=== PATIENT | female | born 1990 | race Caucasian/White ===

== ENCOUNTER 2016-03-29 16:32 | Emergency (ER) | payer OTHER ==
[~2016-03-29] VITALS: Wt 116.4 kg
[~2016-03-29 16:32] MED LIST: FLUT9.9S NASAL; NITR-58 PO; ONDA4TAB35 PO; SODI30SP2 NS
[2016-03-29 16:56] VITALS: Wt 116.4 kg
--- NOTE | 2016-03-29 18:30 | ERD ---
ER Documentation Chief Complaint Date/Time DATE: 03/29/16 TIME: 18:21 Chief Complaint bib ems c/o anxiety, lorazepam 1mg today, not helping. HPI This patient is a 25-year-old female with a history of anxiety and panic attacks presenting to the emergency department for palpitations and feeling like "her throat is closing". The patient states her symptoms have been occurring intermittently since 4 days ago. This is her third visit to the emergency department this week and she has had a head CT scan, chest CT scan and multiple laboratory tests ordered, of which were all unremarkable. The patient was prescribed Paxil to be taken daily and Ativan to be taken as needed for anxiety symptoms. She states she has had mild relief over the past 3 days with these medications. The patient denies any chest pain, fevers, chills, nausea, vomiting, diarrhea or other symptoms at this time. There are no other alleviating or exacerbating factors at this time. ROS All systems reviewed and are negative except as per history of present illness. Medications Home Meds Active Scripts Sodium Chloride (Saline Nasal [place]) 30 Ml [place], 2 SPRAYS NS Q2H Y for NASAL CONGESTION, #1 BOTTLE Prov:ROLAN JUÁREZ. BURR PICKER 11/24/15 Fluticasone Propionate (Flonase Allergy Relief) 9.9 Ml [place].susp, 1 SPRAY NASAL DAILY, #1 BOTTLE TO EACH NOSTRIL Prov:ROLAN JUÁREZ NP 11/24/15 Ondansetron Hcl* (Zofran* ODT) 4 mg -ODT Tab.disper, 4 MG PO Q8 Y for NAUSEA AND /OR VOMITING, #30 TAB Prov:HECTOR SALTER NP 01/06/15 Nitrofurantoin Monohyd Macrocr* (Macrobid*) 100 Mg Capsr, 100 MG PO BID for 7 Days, CAP Prov:HECTOR SALTER NP 01/06/15 Allergies Allergies: Coded Allergies: Penicillins (Verified Allergy, Mild, RASH, 01/10/15) codeine (Verified Allergy, Mild, RASH, 01/10/15) Uncoded Allergies: GI COCKTAIL (Allergy, Unknown, hives, 01/05/15) PMhx/Soc History of Surgery: Yes (cholecystectomy) Anesthesia Reaction: No Hx Neurological Disorder: No Hx Respiratory Disorders: No Hx Cardiac Disorders: Yes (HTN 10 YR AGO) Hx Psychiatric Problems: No Hx Miscellaneous Medical Probl: Yes (depression) Hx Alcohol Use: No Hx Substance Use: No Hx Tobacco Use: No Smoking Status: Never smoker FmHx Noncontributory for chief complaint Physical Exam Vitals Vital Signs Date Time Temp Pulse Resp B/P Pulse Ox O2 Delivery O2 Flow Rate FiO2 03/29/16 16:56 98.0 101 20 137/87 98 Physical Exam INITIAL VITAL SIGNS: Reviewed by me. The patient is tearful. GENERAL: The patient is well developed and appropriate for usual state of health in no apparent distress HEENT: Pupils equal, round, and reactive to light. EOMI. There is no scleral icterus. NECK: C-spine is soft and supple, there is no meningismus. There is no cervical lymphadenopathy. LUNGS: Clear to auscultation bilaterally. There are no rales, wheezes or rhonchi. HEART: Regular rate and rhythm, no murmurs, clicks, rubs or gallops. ABDOMEN: Obese, soft, non-tender, non-distended. There are bowel sounds in all four quadrants. No rebound or guarding. EXTREMITIES: There is no peripheral cyanosis or edema. No focal swelling or erythema. NEUROLOGICAL: The patient moves all four extremities with 5/5 strength. Cranial nerves II - XII are intact. Normal gait. Alert and oriented SKIN: There is no apparent rash or petechiae. HEME/LYMPHATIC: There is no evidence of excessive bruising or lymphedema. PSYCHIATRIC: Tearful affect. The patient denies any suicidal ideation or homicidal ideation. Procedures/MDM EKG: Interpreted by ED physician. Rate/Rhythm: Normal sinus rhythm, rate is 94 bpm. QRS, ST, T-waves: No changes consistent w/ acute ischemia Impression: No evidence of ischemia or arrhythmia MDM: 25-year-old female presenting to the emergency department with acute anxiety symptoms. On physical examination the patient has a tearful affect but she adamantly denies any suicidal or homicidal ideation. The rest of the physical examination is unremarkable. EKG interpretation shows no evidence of acute ischemia. Patient is not able to identify any triggers in her life currently that are causing her anxiety symptoms. The patient was advised to continue taking her prescribed medications as directed and she was given resources to follow-up with community mental health clinics. The patient is under direct care of her primary care physician who will be referring her out to specialists as needed. After some time speaking with the patient in the department, she states she is feeling improved and she is currently stable for discharge. I feel that the patient's symptoms are attributed to acute anxiety and she agrees with the plan to be treated as an outpatient. She states she will return to the emergency department immediately should her symptoms continue. I discussed this case with Dr. Eliezer Holden, attending ED physician who agrees with History, Examination, ED course, and disposition. Departure Diagnosis: Primary Impression: Anxiety attack Condition: Stable Patient Instructions: Panic Attack Referrals: JOHN OLIVERA (PCP) RACHELL BRICEÑO [facility] YOU HAVE RECEIVED A MEDICAL SCREENING EXAM AND THE RESULTS INDICATE THAT YOU DO NOT HAVE A CONDITION THAT REQUIRES URGENT TREATMENT IN THE EMERGENCY DEPARTMENT. FURTHER EVALUATION AND TREATMENT OF YOUR CONDITION CAN WAIT UNTIL YOU ARE SEEN IN YOUR DOCTORS OFFICE WITHIN THE NEXT 1-2 DAYS. IT IS YOUR RESPONSIBILITY TO MAKE AN APPOINTMENT FOR FOLOW-UP CARE. IF YOU HAVE A PRIMARY DOCTOR --you should call your primary doctor and schedule an appointment IF YOU DO NOT HAVE A PRIMARY DOCTOR YOU CAN CALL OUR PHYSICIAN REFERRAL HOTLINE AT IF YOU CAN NOT AFFORD TO SEE A PHYSICIAN YOU CAN CHOSE FROM THE FOLLOWING [facility] [address] [facility]. [facility] [address] [facility] [facility] [address] [facility] [facility] [address] [facility]. [facility] [address] [facility]. [facility]. [address] Additional Instructions: Follow-up with your primary care physician within 1 week. Return to the emergency department immediately should you have any new or worsening symptoms, uncontrolled fevers, or other unexplained symptoms. Take all medications as directed. DARÍO GARCÍA PA-C Mar 29, 2016 18:30
== END 2016-03-29 18:15 | disposition home or self-care (01) ==
LOC: FTE 16:32
DX: F41.0 Panic disorder [episodic paroxysmal anxiety] (principal); I10 Essential (primary) hypertension
CPT/HCPCS: 93005; Z7502

== ENCOUNTER 2016-04-13 10:14 | Emergency (ER) | payer OTHER ==
[~2016-04-13] VITALS: Wt 80.0 kg
[2016-04-13 10:17] VITALS: Wt 80.0 kg
--- NOTE | 2016-04-13 12:11 | RADRPT ---
PROCEDURE: XR Chest. CLINICAL INDICATION: Chest congestion TECHNIQUE: PA view of the chest was obtained. COMPARISON: None. FINDINGS: The cardiomediastinal silhouette is within normal limits. The lungs are clear. No pleural effusion or pneumothorax is evident. The visualized osseous structures are intact. IMPRESSION: No evidence of active cardiopulmonary disease. RPTAT: VV .Jus Cooley MD, MD Date Time Electronically viewed and signed by .Jus Cooley MD, on 04/13/2016 12:11 .O/
--- NOTE | 2016-04-13 12:24 | RADRPT ---
PROCEDURE: CT Brain without. CLINICAL INDICATION: Brief episode of tingling and slurred speech. TECHNIQUE: A CT of the brain was performed on multidetector high-resolution CT scanner utilizing a xial sections from the skull base through the vertex without contrast. The scan was reviewed in sof t tissue brain and high frequency resolution bone algorithm windows. Images were reviewed on a high -resolution PACS workstation. One or more the following does reduction techniques were utilized: Aut omated exposure control, adjustment of themA/ or kV according to patient's size, or use of iterative reconstruction technique. The exam CTDI = 44.9 mGy and the DLP = 630.2 mGy-cm. COMPARISON: None available. FINDINGS: The ventricles and sulci are age-appropriate. There is no intracranial hemorrhage, mass effect or mi dline shift. No abnormal intra-axial or extra-axial fluid collections are seen. The tubbs/white kin er differentiation is preserved. No acute skull abnormality is noted. The visualized paranasal sinus es are essentially clear. IMPRESSION: 1. No acute intracranial hemorrhage, transcortical infarction or mass effect. Brain MRI can be obta ined If clinical concern persists. RPTAT: HH .Jaclyn Farah MD, MD Date Time Electronically viewed and signed by .Jaclyn Farah MD, MD on 04/13/2016 12:23 .N/
[2016-04-13] MEDS ORDERED: BUS5 PO (13:02)
--- NOTE | 2016-04-13 13:16 | ERD ---
ER Documentation Chief Complaint Date/Time DATE: 04/13/16 TIME: 13:11 Chief Complaint CHRONIC ANXIETY HPI This 25-year-old female presents today for a concerning episode in which she had paresthesias of her hands as well as difficulty speaking and also feeling like her throat was closing up. There is a very brief episode lasting less than a minute. She currently feels completely well now but still little bit anxious. She has a history of anxiety. Is worried that this could be something more substantial the as she has not had an episode quite like this and did not feel anxious at the start of it. She currently has no chest pain no shortness of breath, no nausea. She has not had fevers and chills lately. No headache. For a similar episode she went to [facility] and had a complete workup including a CTA chest. Nothing else was found. She also states that she cannot be because she just did a test that was negative ROS All systems reviewed and are negative except as per history of present illness. Medications Home Meds Active Scripts Buspirone Hcl* (Buspar*) 5 Mg Tab, 5 MG PO BID, #14 TAB Prov:SILVIAANDERSON DO 04/13/16 Sodium Chloride (Saline Nasal [place]) 30 Ml [place], 2 SPRAYS NS Q2H Y for NASAL CONGESTION, #1 BOTTLE Prov:ROALN JUÁREZ NP 11/24/15 Fluticasone Propionate (Flonase Allergy Relief) 9.9 Ml [place].susp, 1 SPRAY NASAL DAILY, #1 BOTTLE TO EACH NOSTRIL Prov:ROLAN JUÁREZ NP 11/24/15 Ondansetron Hcl* (Zofran* ODT) 4 mg -ODT Tab.disper, 4 MG PO Q8 Y for NAUSEA AND /OR VOMITING, #30 TAB Prov:HECTOR SALTER NP 01/06/15 Nitrofurantoin Monohyd Macrocr* (Macrobid*) 100 Mg Capsr, 100 MG PO BID for 7 Days, CAP Prov:HECTOR SALTER TIRE TESTER 01/06/15 Allergies Allergies: Coded Allergies: Penicillins (Verified Allergy, Mild, RASH, 01/10/15) codeine (Verified Allergy, Mild, RASH, 01/10/15) Uncoded Allergies: GI COCKTAIL (Allergy, Unknown, hives, 01/05/15) PMhx/Soc History of Surgery: Yes (cholecystectomy) Anesthesia Reaction: No Hx Neurological Disorder: No Hx Respiratory Disorders: No Hx Cardiac Disorders: Yes (HTN 10 YR AGO) Hx Psychiatric Problems: No Hx Miscellaneous Medical Probl: Yes (depression) Hx Alcohol Use: No Hx Substance Use: No Hx Tobacco Use: No Physical Exam Vitals Vital Signs Date Time Temp Pulse Resp B/P Pulse Ox O2 Delivery O2 Flow Rate FiO2 04/13/16 10:17 98.0 132 18 154/71 99 Physical Exam Const: [] No distress Head: Atraumatic Eyes: Normal Conjunctiva, EOMI, PERRLA ENT: Normal External Ears, Nose and Mouth. Neck: Full range of motion..~ No meningismus. Resp: Clear to auscultation bilaterally Cardio: Regular mild tachycardia, no murmurs Skin: No petechiae or rashes Ext: No cyanosis, or edema Neur: Awake and alert and oriented 3, creatinine is 2 through 12 intact, no cerebellar deficits finger to nose, normal gait Psych: Normal Mood and Affect Procedures/MDM 25-year-old female with a concerning episode which possibly could be neurological but symptoms do fit with a panic attack. Symptoms are completely resolved at this time. I have low suspicion for a transient ischemic attack in a patient this age. She is currently asymptomatic. Head CT was performed as well as chest x-ray and EKG all of which were negative for any acute process. I am recommending that she follow-up with her primary care doctor in the next couple of days for a neurology referral for further testing to rule out any other central causes for these episodes. I am also giving her 2 weeks worth of BuSpar. Return precautions to the ER also given. CT head interpretation: No acute process no regional mass no midline shift no mass-effect no skull fracture Chest x-ray interpretation: No acute process no other mediastinal pneumothorax no infiltrate no bony abnormalities. EKG interpretation: Sinus tachycardia rate of 116, normal axis, no ST or T-wave changes concerning for acute ischemia Departure Diagnosis: Primary Impression: Paresthesia Additional Impression: Anxiety attack Condition: Stable Patient Instructions: Panic Attack, Paraesthesias Additional Instructions: Call your primary care doctor TOMORROW for an appointment during the next 1-2 days. Get a referral for a neurologist for further workup. See the doctor sooner or return here if your condition worsens before your appointment time. ANDERSON VEGA DO Apr 13, 2016 13:16
== END 2016-04-13 13:29 | disposition home or self-care (01) ==
LOC: FTE 10:14
DX: R20.2 Paresthesia of skin (principal); I10 Essential (primary) hypertension
CPT/HCPCS: 70450; 71010; Z7502

== ENCOUNTER 2016-04-16 14:54 | Emergency (ER) | payer OTHER ==
[~2016-04-16] VITALS: Ht 162.6 cm; Wt 85.0 kg
[~2016-04-16 14:54] MED LIST changes: +BUS5 PO
[2016-04-16 15:42] VITALS: Ht 162.6 cm; Wt 85.0 kg
[2016-04-16] MEDS ORDERED: LORAZEPAM 1 MG TAB PO ONE (18:00)
[2016-04-16 19:01] LABS: URINE BLOOD (Dip) POC Negative (NEGATIVE)
--- NOTE | 2016-04-16 19:28 | ERD ---
ER Documentation Chief Complaint Date/Time DATE: 04/16/16 TIME: 19:20 Chief Complaint FEELING ANXIOUS HPI This is a 25-year-old female brought into the ER by ambulance for anxiety. Patient was seen here yesterday for same symptoms. Patient states she is feeling lightheaded, dizzy and having paresthesias to bilateral upper extremities and face. Denies weakness. Patient also states she is having loose watery diarrhea for 1 week. Stool is nonbloody. No black tarry stool. No recent travel outside the country. No fevers or chills. Patient states she is having multiple loose watery bowel movements per day. Patient states she feels like she has have a bowel movement immediately after eating. Patient has had multiple episodes of anxiety this past month and has been seen in the ER 3 times. Patient has been previously on Paxil, BuSpar and Valium for this. Patient states her primary care doctor recently took her off Paxil and BuSpar and patient was told to take Valium as needed for anxiety. Patient had chest x- ray and CT of head yesterday which were unremarkable as reviewed by radiologist. Chest x-ray as of yesterday was reviewed by radiologist as no evidence of active cardiopulmonary disease. CT head reviewed by radiologist from yesterday as no acute intracranial hemorrhage, transcortical infarction or mass effect. Patient states she has an appointment with a production aide on Saturday For continued tachycardia and anxiety attacks. No current shortness of breath, difficulty breathing or chest pain. ROS All systems reviewed and are negative except as per history of present illness. Medications Home Meds Active Scripts Ciprofloxacin Hcl* (Ciprofloxacin Hcl*) 500 Mg Tablet, 500 MG PO BID for 3 Days , TAB Prov:ALISTAIR MEJIA NP 04/16/16 Sodium Chloride (Saline Nasal [place]) 30 Ml [place], 30 ML NS BID, #1 SPRAY Prov:ALISTAIR MEJIA NP 04/16/16 Alprazolam* (Xanax*) 0.25 Mg Tablet, 0.25 MG PO Q8H Y for ANXIETY, #15 TAB Prov:ALISTAIR MEJIA NP 04/16/16 Buspirone Hcl* (Buspar*) 5 Mg Tab, 5 MG PO BID, #14 TAB Prov:ANDERSON VEGA DO 04/13/16 Sodium Chloride (Saline Nasal [place]) 30 Ml [place], 2 SPRAYS NS Q2H Y for NASAL CONGESTION, #1 BOTTLE Prov:ROLAN JUÁREZ NP 11/24/15 Fluticasone Propionate (Flonase Allergy Relief) 9.9 Ml [place].susp, 1 SPRAY NASAL DAILY, #1 BOTTLE TO EACH NOSTRIL Prov:ROLAN JUÁREZ NP 11/24/15 Ondansetron Hcl* (Zofran* ODT) 4 mg -ODT Tab.disper, 4 MG PO Q8 Y for NAUSEA AND /OR VOMITING, #30 TAB Prov:HECTOR SALTER NP 01/06/15 Nitrofurantoin Monohyd Macrocr* (Macrobid*) 100 Mg Capsr, 100 MG PO BID for 7 Days, CAP Prov:HECTOR SALTER NP 01/06/15 Discontinued Scripts Nitrofurantoin Monohyd Macrocr* (Macrobid*) 100 Mg Capsr, 100 MG PO BID for 5 Days, CAP Prov:ALISTAIR MEJIA NP 04/16/16 Allergies Allergies: Coded Allergies: Penicillins (Verified Allergy, Mild, RASH, 01/10/15) codeine (Verified Allergy, Mild, RASH, 01/10/15) Uncoded Allergies: GI COCKTAIL (Allergy, Unknown, hives, 01/05/15) PMhx/Soc History of Surgery: Yes (cholecystectomy) Anesthesia Reaction: No Hx Neurological Disorder: No Hx Respiratory Disorders: No Hx Cardiac Disorders: Yes (HTN 10 YR AGO) Hx Psychiatric Problems: Yes (ANXIETY) Hx Miscellaneous Medical Probl: Yes (depression) Hx Alcohol Use: No Hx Substance Use: No Hx Tobacco Use: No Physical Exam Vitals Vital Signs Date Time Temp Pulse Resp B/P Pulse Ox O2 Delivery O2 Flow Rate FiO2 04/16/16 22:16 98.4 79 18 130/72 98 04/16/16 15:42 98.1 87 18 153/67 98 Physical Exam Const: Anxious, alert and crying at times. Head: Atraumatic Eyes: Normal Conjunctiva ENT: Normal External Ears, Nose and Mouth. Neck: Full range of motion..~ No meningismus. Resp: Clear to auscultation bilaterally. No wheezing, rhonchi or crackles. Cardio: Regular rate and rhythm, no murmurs Abd: Soft, non tender, non distended. Normal bowel sounds Skin: No petechiae or rashes Back: No midline or flank tenderness Ext: No cyanosis, or edema Neur: Awake and alert cranial nerves II through XII intact. No weakness. Strength equal bilaterally to upper and lower extremities. Walking with normal gait. Psych: Anxious Result Diagram: 04/16/16194604/16/161946 Results 24 hrs Laboratory Tests Test 04/16/16 19:03 04/16/16 19:47 Bedside Urine Blood Negative Bedside Urine Glucose (UA) Negative Bedside Urine Ketones (LAB) 4+ Bedside Urine Leukocyte Esterase (L Trace Bedside Urine Nitrite (LAB) Negative Bedside Urine Protein (LAB) 1+ Bedside Urine pH (LAB) 5.5 Alanine Aminotransferase (ALT/SGPT) 99IU/L Albumin 4.0g/dl Albumin/Globulin Ratio 1.05 Alkaline Phosphatase 76IU/L Anion Gap 22 Aspartate Amino Transf (AST/SGOT) 51IU/L Basophils # 0.010^3/ul Basophils % 0.3% Blood Morphology Comment Blood Urea Nitrogen 7mg/dl Calcium Level 9.9mg/dl Carbon Dioxide Level 18mmol/L Chloride Level 108mmol/L Creatinine 0.54mg/dl Direct Bilirubin 0.00mg/dl Eosinophils # 0.110^3/ul Eosinophils % 1.0% Globulin 3.80g/dl Glucose Level 84mg/dl Hematocrit 43.5% Hemoglobin 14.6g/dl Indirect Bilirubin 0.6mg/dl Lymphocytes # 2.210^3/ul Lymphocytes % 23.0% Mean Corpuscular Hemoglobin 28.6pg Mean Corpuscular Hemoglobin Concent 33.5g/dl Mean Corpuscular Volume 85.2fl Mean Platelet Volume 9.9fl Monocytes # 0.610^3/ul Monocytes % 5.9% Neutrophils # 6.810^3/ul Neutrophils % 69.8% Nucleated Red Blood Cells # 0.010^3/ul Nucleated Red Blood Cells % 0.0/100WBC Platelet Count 12698^3/UL Potassium Level 3.6mmol/L Red Blood Count 5.1110^6/ul Red Cell Distribution Width 13.1% Sodium Level 144mmol/L Total Bilirubin 0.6mg/dl Total Protein 7.8g/dl White Blood Count 9.710^3/ul Current Medications Medications (Trade) Dose Ordered Sig/Samantha Route PRN Reason Start Time Stop Time Status Last Admin Dose Admin Lorazepam 1 mg 1 mg ONCE ONCE PO 04/16/16 18:00 04/16/16 18:01 DC 04/16/16 18:16 Sodium Chloride (NS) 1,000 ml @ 1,000 mls/hr Q1H ONCE IV 04/16/16 19:30 04/16/16 20:29 DC 04/16/16 19:43 Ketorolac Tromethamine (Toradol) 30 mg ONCE STAT IV 04/16/16 20:52 04/16/16 20:53 DC 04/16/16 21:23 Procedures/MDM ED COURSE: The patient was stable throughout ED course. I kept the patient and/or family informed of laboratory and diagnostic imaging results throughout the ED course. Lorazepam given. IV access obtained and normal saline IV bolus given Laboratory CBC no significant infection or anemia CMP no significant electrolyte imbalance Urine dip shows trace leukocytosis, 4+ ketone, 1+ protein EKG: As interpreted by Dr. Aguero Rate/Rhythm: Sinus tachycardia with heart rate 103 bpm QRS, ST, T-waves: No changes consistent w/ acute ischemia Impression: No evidence of ischemia or arrhythmia MDM: This is a 25-year-old female presenting to the emergency department for anxiety. This is patient's third visit to this ER for anxiety and panic attack. Patient states she came in feeling lightheaded, dizzy and has had 1 week of watery diarrhea. Patient also is having tenesmus at times after having small amount of food. Labs are unremarkable. Urine shows possible UTI. EKG is interpreted by Dr. Aguero as sinus tachycardia with heart rate 103 bpm. Patient given lorazepam and Toradol in the ED for anxiety and head ache. Patient states she is feeling better. No longer feeling as anxious and headache has improved significantly. Patient has appointment tomorrow with her primary care provider and encouraged to follow-up with him for additional anxiety management. Low suspicion for acute PA, lethal arrhythmia, CVA. Patient likely has anxiety. Patient is appropriate for outpatient management and will be given prescription for Xanax, Cipro and saline nasal spray. Instructed patient to follow-up with primary care provider tomorrow at scheduled appointment. Return to ED for any high fever, chest pain, difficulty breathing, shortness breath, wheezing, vomiting, diarrhea, abdominal pain or any new or worsening symptoms. Patient verbalizes understanding. All questions answered at discharge. Departure Diagnosis: Primary Impression: Anxiety Condition: Stable ALISTAIR MEJIA NP Apr 16, 2016 19:28
[2016-04-16] MEDS ORDERED: SOD CHLORIDE 0.9% 1,000 ML IV ONE (19:30)
[2016-04-16 20:10] LABS: BASOPHILS % 0.3 % (0.0-2.0); EOSINOPHILS # 0.1 10^3/ul (0.0-0.5); HEMATOCRIT 43.5 % (37.0-47.0); HEMOGLOBIN 14.6 g/dl (12.0-16.0); LYMPHOCYTES # 2.2 10^3/ul (0.8-2.9); MEAN CORPUSCULAR HEMOGLOBIN 28.6 pg (29.0-33.0); MEAN CORPUSCULAR HGB CONC 33.5 g/dl (32.0-37.0); MEAN CORPUSCULAR VOLUME 85.2 fl (82.0-101.0); MEAN PLATELET VOLUME 9.9 fl (7.4-10.4); MONOCYTE # 0.6 10^3/ul (0.3-0.9); MONOCYTES % 5.9 % (0.0-11.0); NEUTROPHIL # 6.8 10^3/ul (1.6-7.5); NEUTROPHILS % 69.8 % (39.0-77.0); PLATELET COUNT 287 10^3/UL (140-440); RED BLOOD COUNT 5.11 10^6/ul (4.20-5.40); RED CELL DISTRIBUTION WIDTH 13.1 % (11.5-14.5); UNCORRECTED WBC 9.7 10^3/ul (4.8-10.8); WHITE BLOOD COUNT 9.7 10^3/ul (4.8-10.8)
[2016-04-16 20:18] LABS: CONDITION 1
[2016-04-16 20:20] LABS: POTASSIUM 3.6 mmol/L (3.5-5.1)
[2016-04-16 20:21] LABS: ALBUMIN/GLOBULIN RATIO 1.05; BILIRUBIN,INDIRECT 0.6 mg/dl (0-1.1); BILIRUBIN,TOTAL 0.6 mg/dl (0.2-1.3); CREATININE 0.54 mg/dl (0.44-1.00); TOTAL PROTEIN 7.8 g/dl (6.1-8.1)
[2016-04-16 20:22] LABS: CALCIUM 9.9 mg/dl (8.4-10.2)
[2016-04-16] MEDS ORDERED: KETOROLAC 30 MG INJ IV STA (20:52)
[2016-04-16] MEDS ORDERED: ALPR0.25 PO (22:01)
[2016-04-16] MEDS ORDERED: NITR-58 PO (22:01)
[2016-04-16] MEDS ORDERED: SODI30SP2 NS (22:01)
[2016-04-16] MEDS ORDERED: CIPR500T4 PO (22:11)
[2016-04-16 22:16] VITALS: BP 130/72; PULSE 79; RESP 18; TEMP 98.4
== END 2016-04-16 22:19 | disposition home or self-care (01) ==
LOC: FTE 14:54
DX: F41.9 Anxiety disorder, unspecified (principal); I10 Essential (primary) hypertension
CPT/HCPCS: 80053; 81003; 85025; 93005; J1885; J7030; Z7610; 96374

== ENCOUNTER 2016-04-21 08:35 | Observation (INO) | payer OTHER ==
[~2016-04-21] VITALS: Ht 160 cm; Wt 107.5 kg
[~2016-04-21 08:35] MED LIST changes: +ALPR0.25 PO; +CIPR500T4 PO
[2016-04-21 08:39] VITALS: Ht 160 cm; Wt 107.5 kg
--- NOTE | 2016-04-21 09:32 | RADRPT ---
PROCEDURE: XR Chest. CLINICAL INDICATION: Shortness of breath TECHNIQUE: A single portable view of the chest was obtained. COMPARISON: 04/13/2016 FINDINGS: The technique is lordotic. The cardiomediastinal silhouette is within normal limits. The lungs and pleural spaces are clear. The soft tissues and osseous structures are unremarkable. IMPRESSION: No acute cardiopulmonary disease. RPTAT: HPNM Physician Osei Date Time Electronically viewed and signed by Jairon Freitas Physician on 04/21/2016 09:31 /
[2016-04-21 09:36] LABS: CHLORIDE 106 mmol/L (97-110); POTASSIUM 3.4 mmol/L (3.5-5.1); SODIUM 143 mmol/L (135-144)
[2016-04-21 09:39] LABS: ANION GAP 19 (8-16); BLOOD UREA NITROGEN 7 mg/dl (7-20); CARBON DIOXIDE 21 mmol/L (21-31); CREATININE 0.63 mg/dl (0.44-1.00); GLUCOSE 119 mg/dl (70-220)
--- NOTE | 2016-04-21 09:39 | ERA ---
ER Documentation Chief Complaint Date/Time DATE: 04/21/16 TIME: 09:36 Chief Complaint sob, svt in field 6 & 12 adenosine given HPI 25-year-old female presents to the emergency department after palpitations and chest discomfort. Patient has had a significant history over the last month to 6 weeks of intermittent episodes of chest discomfort palpitations and anxiety. Patient has been seen in multiple emergency department in multiple hospitals with ultimately being seen by a diagrammer. Diagnosis to date includes anxiety with sinus tachycardia. Despite taking metoprolol, she continued to have symptoms. This morning, she had the spontaneous onset of a feeling of anxiety shortness of breath and palpitations. The paramedics were called. I have reviewed the accountant controller pre-hospital care. Pre-hospital vital signs were reviewed. Pre-hospital diagnostic tests were reviewed. Paramedics indicated SVT and gave adenosine twice. EKG in the field demonstrated questionable SVT at 160 versus a sinus tach. Upon arrival, patient's heart rate is in the 100s. She has symptoms of anxiety with nonspecific chest discomfort. She has no further palpitations. ROS All systems reviewed and are negative except as per history of present illness. Medications Home Meds Active Scripts Ciprofloxacin Hcl* (Ciprofloxacin Hcl*) 500 Mg Tablet, 500 MG PO BID for 3 Days , TAB Prov:ALISTAIR MEJIA NP 04/16/16 Sodium Chloride (Saline Nasal [place]) 30 Ml [place], 30 ML NS BID, #1 SPRAY Prov:ALISTAIR MEJIA NP 04/16/16 Alprazolam* (Xanax*) 0.25 Mg Tablet, 0.25 MG PO Q8H Y for ANXIETY, #15 TAB Prov:ALISTAIR MEJIA NP 04/16/16 Buspirone Hcl* (Buspar*) 5 Mg Tab, 5 MG PO BID, #14 TAB Prov:ANDERSON VEGA DO 04/13/16 Sodium Chloride (Saline Nasal [place]) 30 Ml [place], 2 SPRAYS NS Q2H Y for NASAL CONGESTION, #1 BOTTLE Prov:ROLAN JUÁREZ NP 11/24/15 Fluticasone Propionate (Flonase Allergy Relief) 9.9 Ml [place].susp, 1 SPRAY NASAL DAILY, #1 BOTTLE TO EACH NOSTRIL Prov:ROLAN JUÁREZ NP 11/24/15 Ondansetron Hcl* (Zofran* ODT) 4 mg -ODT Tab.disper, 4 MG PO Q8 Y for NAUSEA AND /OR VOMITING, #30 TAB Prov:HECTOR SALTERJillian SENIOR TREASURY ANALYST 01/06/15 Nitrofurantoin Monohyd Macrocr* (Macrobid*) 100 Mg Capsr, 100 MG PO BID for 7 Days, CAP Prov:HECTOR SALTERJillian SENIOR TREASURY ANALYST 01/06/15 Discontinued Scripts Nitrofurantoin Monohyd Macrocr* (Macrobid*) 100 Mg Capsr, 100 MG PO BID for 5 Days, CAP Prov:ALISTAIR MEJIA SENIOR TREASURY ANALYST 04/16/16 Allergies Allergies: Coded Allergies: Penicillins (Verified Allergy, Mild, RASH, 01/10/15) codeine (Verified Allergy, Mild, RASH, 01/10/15) Uncoded Allergies: GI COCKTAIL (Allergy, Unknown, hives, 01/05/15) PMhx/Soc History of Surgery: Yes (cholecystectomy) Anesthesia Reaction: No Hx Neurological Disorder: No Hx Respiratory Disorders: No Hx Cardiac Disorders: Yes (HTN 10 YR AGO) Hx Psychiatric Problems: Yes (ANXIETY) Hx Miscellaneous Medical Probl: Yes (depression) Hx Alcohol Use: No Hx Substance Use: No Hx Tobacco Use: No Smoking Status: Never smoker FmHx Noncontributory for chief complaint with no history of early sudden cardiac Physical Exam Vitals Vital Signs Date Time Temp Pulse Resp B/P Pulse Ox O2 Delivery O2 Flow Rate FiO2 04/21/16 08:39 98.2 99 16 143/92 100 Physical Exam GENERAL: Patient is an obese female in no distress HEENT: Pupils equal, round, and reactive to light. EOMI. There is no scleral icterus. NECK: C-spine is soft and supple, there is no meningismus. There is no cervical lymphadenopathy. No obvious thyroid mass LUNGS: Clear to auscultation bilaterally. There are no rales, wheezes or rhonchi. HEART: Regular rate and rhythm, no murmurs, clicks, rubs or gallops. ABDOMEN: Soft, non-tender, non-distended. There are bowel sounds in all four quadrants. No rebound or guarding. EXTREMITIES: There is no peripheral cyanosis or edema. No focal swelling or erythema. NEURO: The patient moves all four extremities with 5/5 strength. Cranial nerves II - XII are intact. Normal gait. Alert and oriented SKIN: There is no apparent rash or petechiae. HEME/LYMPHATIC: There is no evidence of excessive bruising or lymphedema. PSYCHIATRIC: Patient does appear anxious. No suicidal or homicidal thoughts. Procedures/MDM Patient was taken to a room, seen and evaluated. Comfort measures were initiated. Diagnostic tests were ordered and reviewed. 3 LEAD RHYTHM STRIP: Sinus tachycardia without ectopy EK lead EKG from the paramedics reviewed by myself: Sinus tachycardia versus SVT at in the 160s Normal [place] and intervals No ST elevation, depression, or T wave inversion Impression: Sinus tach versus SVT Twelve-lead EKG interpreted by myself upon arrival: Rate/rhythm: Sinus tachycardia with no ectopy [place]/intervals: Normal Ischemia: No ST elevation, ST depression, T wave inversion Impression: Nonischemic EKG RADIOLOGY: reviewed with the radiologist CONSULTATION: hospitalist was notified for admission after speaking with the patient's diagrammer, . REEVALUATION: Patient remained in a sinus tachycardia with no further dysrhythmia MEDICAL DECISION MAKIN-year-old female presents to the emergency department with a recurrent SVT versus sinus tachycardia related to anxiety. At this time, patient had multiple evaluations and as per my conversations with her evaluating diagrammer, he has recommended admission for further cardiac observation, rhythm monitoring. Full workup including echocardiogram TSH have been ordered and are pending. Departure Diagnosis: Primary Impression: SVT (supraventricular tachycardia) Additional Impression: Anxiety attack CHANTAL DE LEON Apr 21, 2016 09:39
[2016-04-21 09:40] LABS: CALCIUM 9.6 mg/dl (8.4-10.2)
[2016-04-21 09:41] LABS: INR 0.98
[2016-04-21 09:42] LABS: PARTIAL THROMBOPLASTIN TIME 25.9 Sec (25.0-35.0)
[2016-04-21 09:55] LABS: TROPONIN-I < 0.012 ng/ml (0.00-0.12)
[2016-04-21] MEDS ORDERED: METO-448 PO (10:00)
[2016-04-21 10:14] LABS: HEMATOCRIT 43.4 % (37.0-47.0); HEMOGLOBIN 15.1 g/dl (12.0-16.0); MEAN CORPUSCULAR HEMOGLOBIN 28.5 pg (29.0-33.0); MEAN CORPUSCULAR HGB CONC 34.8 g/dl (32.0-37.0); MEAN CORPUSCULAR VOLUME 81.9 fl (82.0-101.0); RED CELL DISTRIBUTION WIDTH 12.4 % (11.5-14.5)
[2016-04-21 10:15] LABS: BASOPHILS % 0.3 % (0.0-2.0); EOSINOPHILS # 0.1 10^3/ul (0.0-0.5); EOSINOPHILS % 1.3 % (0.0-7.0); LYMPHOCYTES # 1.5 10^3/ul (0.8-2.9); LYMPHOCYTES % 21.7 % (15.0-51.0); MEAN PLATELET VOLUME 11.9 fl (7.4-10.4); MONOCYTE # 0.5 10^3/ul (0.3-0.9); MONOCYTES % 6.7 % (0.0-11.0); NEUTROPHIL # 4.9 10^3/ul (1.6-7.5); NEUTROPHILS % 69.6 % (39.0-77.0); PLATELET COUNT 311 10^3/UL (140-440)
[2016-04-21] MEDS ORDERED: LORAZEPAM 1 MG TAB PO ONE (11:00)
[2016-04-21 14:47] VITALS: BP 122/87; PULSE 111; RESP 18
[2016-04-21 14:48] VITALS: BMI 42.0
--- NOTE | 2016-04-21 14:50 | RADRPT ---
Echocardiogram Report Patient Name: PATRICIA OSWALD Gender: Female Date: 1990 Study Date: 21-Apr-2016 [place] Accommodation Consultant: [facility] – [place] Location: E Ref. Physician: CHANTAL DE LEON Quality: Adequate Procedures: Transthoracic echocardiogram with 2D, M-Mode, and Doppler examination. Indications: SVT. 2D/M Mode Doppler Measurement Value Normal Ranges Measurement Value Normal Ranges AoR Diam MM 2.9 cm AV Peak Ronald 1.3 m/sec ACS MM 1.8 cm AV Peak PG 6.3 mmHg LVIDd 2D 4.2 3.5 - 5.6 cm LVOT Peak Ronald 0.8 m/sec LVIDs 2D 2.7 2.1 - 4.1 cm LVOT Peak PG 2.7 mmHg LVPWd 2D 1.1 0.6 - 1.1 cm MV E Peak Ronald 0.9 m/sec IVSd 2D 1.1 0.6 - 1.1 cm MV A Peak Ronald 0.4 m/sec EDV 2D 79.2 cm3 MV E/A 2.3 ESV 2D 19.2 cm3 MV Decel Time 102 msec LA Dimen 2D 3.7 2.3 - 4.0 cm MV Decel [place] 9 MV E/A 2.3 PV Peak Ronald 1.1 m/sec PV Peak PG 5.0 mmHg Findings Left Ventricle: Normal left ventricular systolic function. Normal left ventricular cavity size. Normal left ventricular wall thickness. Ejection fraction is visually estimated at 60 %. Tissue Doppler/Mitral Doppler indices are within normal limits. E/E`=7. Right Ventricle: Normal right ventricular size. Normal right ventricular systolic function. Left Atrium: The left atrium is normal in size. Right Atrium: The right atrium is normal in size. Atrial Septum: Not well visualized. Mitral Valve: Normal appearance and function of the mitral valve with trace physiologic regurgitation. Aortic Valve: Normal appearance of the aortic valve. No significant aortic stenosis or insufficiency. Tricuspid Valve: Normal appearance of the tricuspid valve. Unable to obtain RVSP due to minimal presence of tricuspid regurgitation. No evidence of tricuspid regurgitation. Pulmonic Valve: Normal pulmonic valve appearance. No evidence of pulmonic regurgitation. Pericardium: Normal pericardium with no significant pericardial effusion. Aorta: Normal aortic root. IVC: Normal size and normal respiratory collapse consistent with normal right atrial pressure. Pulmonary Artery: Normal pulmonary artery size. Conclusions 1.Normal left ventricular systolic function. Normal left ventricular cavity size. Normal left ventricular wall thickness. Ejection fraction is visually estimated at 60 %. Tissue Doppler/Mitral Doppler indices are within normal limits. E/E`=7. 2.Normal appearance and function of the mitral valve with trace physiologic regurgitation. 3.Normal appearance of the aortic valve. No significant aortic stenosis or insufficiency. 4.Normal appearance of the tricuspid valve. Unable to obtain RVSP due to minimal presence of tricuspid regurgitation. No evidence of tricuspid regurgitation. 5.Normal pulmonic valve appearance. No evidence of pulmonic regurgitation. 6.Normal size and normal respiratory collapse consistent with normal right atrial pressure. Electronically Signed By: Adriel Pal 21-Apr-2016 14:49:36 -0800 Patient Name: PATRICIA OSWALD Study Date: 21-Apr-2016 [id number]
[2016-04-21] MEDS ORDERED: LORA1TAB PO (14:51)
[2016-04-21 14:53] VITALS: PULSE 116
[2016-04-21 15:17] LABS: CREATINE KINASE 43 IU/L (23-200); IRON 68 ug/dl (35-150)
[2016-04-21] MEDS: POTASSIUM CHLORIDE (SR) 20 MEQ TAB PO SCH ×2 (15:24→18:08)
[2016-04-21 15:27] LABS: TOTAL IRON BINDING CAPACITY 264 ug/dl (241-421)
[2016-04-21 15:28] LABS: CK-MB < 0.22 ng/ml (0.0-2.4)
[2016-04-21 15:34] LABS: TROPONIN-I < 0.012 ng/ml (0.00-0.12)
[2016-04-21 15:59] LABS: ALBUMIN 4.1 g/dl (3.3-4.9)
[2016-04-21] MEDS ORDERED: METOPROLOL 25 MG TAB PO SCH (16:00)
[2016-04-21 16:01] LABS: BILIRUBIN,INDIRECT 0.5 mg/dl (0-1.1); BILIRUBIN,TOTAL 0.5 mg/dl (0.2-1.3)
[2016-04-21 16:02] LABS: TOTAL PROTEIN 7.4 g/dl (6.1-8.1)
[2016-04-21 16:17] VITALS: PULSE 96
--- NOTE | 2016-04-21 16:19 | CONS ---
Date/Time of Note Date/Time of Note DATE: 04/21/16 TIME: 16:12 Assessment/Plan Assessment/Plan Chief Complaint/Hosp Course 1) HTN out of control, refractory to meds 2) Inappropriate sinus tachycardia 3) Anxiety Problems: Additional Assessment/Plan 1) Metoprolol 2) Add cardizem 3) Rule out secondary causes of HTN 4) MRA of renal arteries 5) MRA of adrenal glands dw patient in detail Consultation Date/Type/Reason Admit Date/Time Apr 21, 2016 at 09:52 Date of Consultation: Apr 21, 2016 Type of Consultation: cv Reason for Consultation HTN out of control Referring Provider: ADELIA MYLES Hx of Present Illness patient with multiple episodes of HTN out of control with sudden episodes of > 200/100 and episodes of HR > 160. Multiple ED visits with sinustachycardia. Anxiety meds were started but symptoms continued. Pat saw me in the office yesterday, multiple questions, metoprolol was started. Symptoms are present since 4 weeks. patient was worried about side effects of meds, and called me right after the first metoprolol due to perceived SOB. intermittent chest pain, pat asks for somebody to stay with her at all times. Anxious. Constitutional: no complaints Respiratory: shortness of breath Cardiovascular: chest pain Gastrointestinal: diarrhea Musculoskeletal: no complaints Skin: no complaints Neurologic: no complaints Past Medical History Medical History: hypertension Past Surgical History Past Surgical Hx: cholecystectomy Family History Significant Family History: hypertension Social History Smoking Status: Never smoker Exam/Review of Systems Vital Signs Vitals Vital Signs Date Time Temp Pulse Resp B/P Pulse Ox O2 Delivery O2 Flow Rate FiO2 04/21/16 14:53 116 04/21/16 14:47 98.1 18 122/87 98 04/21/16 14:23 Room Air Exam Constitutional: alert, oriented Psych: anxiety Head: atraumatic, normocephalic Neck: supple Respiratory: clear to auscultation Cardiovascular: regular rate and rhythm Gastrointestinal: soft Musculoskeletal: nl extremities to inspection Extremities: normal pulses Results Result Diagram: 04/21/16 0906 04/21/16 0906 Results 24 hrs Laboratory Tests Test 04/21/16 09:06 04/21/16 14:40 Activated Partial Thromboplast Time 25.9 Anion Gap 19 H Basophils # 0.0 Basophils % 0.3 Blood Urea Nitrogen 7 Calcium Level 9.6 Carbon Dioxide Level 21 Chloride Level 106 Creatinine 0.63 Eosinophils # 0.1 Eosinophils % 1.3 Glucose Level 119 Hematocrit 43.4 Hemoglobin 15.1 INR International Normalized Ratio 0.98 Lymphocytes # 1.5 Lymphocytes % 21.7 Mean Corpuscular Hemoglobin 28.5 L Mean Corpuscular Hemoglobin Concent 34.8 Mean Corpuscular Volume 81.9 L Mean Platelet Volume 11.9 #H Monocytes # 0.5 Monocytes % 6.7 Neutrophils # 4.9 Neutrophils % 69.6 Nucleated Red Blood Cells # 0.0 Nucleated Red Blood Cells % 0.0 Platelet Count 311 Potassium Level 3.4 L Prothrombin Time 13.0 Prothrombin Time Ratio 1.0 Red Blood Count 5.30 Red Cell Distribution Width 12.4 Serum HCG, Qualitative NEGATIVE Sodium Level 143 Thyroid Stimulating Hormone (TSH) 2.010 Pending Troponin I < 0.012 < 0.012 White Blood Count 7.0 # Alanine Aminotransferase (ALT/SGPT) 126 H Albumin 4.1 Alkaline Phosphatase 79 Aspartate Amino Transf (AST/SGOT) 61 H Creatine Kinase 43 Creatine Kinase Index 0.5 Creatinine Kinase MB (Mass) < 0.22 Direct Bilirubin 0.00 Indirect Bilirubin 0.5 Iron Level 68 Magnesium Level 2.0 Percent Iron Saturation 26 Total Bilirubin 0.5 Total Iron Binding Capacity 264 Total Protein 7.4 Medications Medications Current Medications Potassium Chloride (Klor-Con 20) 40 meq Q4H PO Last administered on 04/21/16 15 :24; Admin Dose 40 MEQ; Start 04/21/16 at 14:30; Stop 04/21/16 at 18:31 Metoprolol Tartrate (Lopressor) 25 mg BID PO ; Start 04/21/16 at 21:00 Metoprolol Tartrate (Lopressor) 25 mg NOW PO Last administered on 04/21/16 15: 56; Admin Dose 25 MG; Start 04/21/16 at 16:00; Stop 04/21/16 at 20:00 Alprazolam (Xanax) 0.25 mg Q8H PRN PO ANXIETY; Start 04/21/16 at 16:00 BRANNON MEI MD Apr 21, 2016 16:19
[2016-04-21] MEDS ORDERED: morphine 2 MG INJ IV PRN (16:30)
[2016-04-21 17:03] LABS: THYROID STIMULATING HORMONE 1.42 MIU/L (0.465-4.680)
[2016-04-21] MEDS: DILTIAZEM 30 MG TAB PO SCH ×2 (17:16→22:04)
[2016-04-21 18:00] VITALS: BP 116/73; PULSE 105; RESP 18
[2016-04-21] MEDS: ALPRAZOLAM 0.25 MG TAB PO PRN (18:07)
[2016-04-21 19:32] LABS: ADD UMIC YES; URINE BILIRUBIN (Dip) 1+ (NEGATIVE); URINE BLOOD (Dip) 3+ (NEGATIVE); URINE COLOR LT. YELLOW (YELLOW); URINE GLUCOSE (Dip) NEGATIVE (NEGATIVE); URINE KETONES (Dip) 3+ (NEGATIVE); URINE LEUKOCYTE ESTERASE (Dip) 1+ (NEGATIVE); URINE NITRITE (Dip) NEGATIVE (NEGATIVE); URINE TOTAL PROTEIN (Dip) TRACE (NEGATIVE); URINE UROBILINOGEN (Dip) 1.0 E.U./dL (0.1-1.0)
[2016-04-21 20:00] VITALS: BP 113/66; RESP 19
[2016-04-21 20:13] VITALS: PULSE 94
[2016-04-21 20:21] LABS: ICTOTEST NEGATIVE (NEGATIVE)
[2016-04-21 20:22] LABS: BACTERIA,URINE MODERATE; SQUAMOUS EPITHELIAL CELL,UR FEW; URINE RBCS 0-2 /HPF (0)
[2016-04-21 20:53] LABS: BARBITURATES Negative (NEGATIVE)
[2016-04-21 20:54] LABS: CREATINE KINASE 43 IU/L (23-200)
[2016-04-21 20:55] LABS: BENZODIAZEPINES Negative (NEGATIVE); CANNABINOIDS Negative (NEGATIVE); COCAINE Negative (NEGATIVE)
[2016-04-21 20:56] LABS: OPIATES Negative (NEGATIVE)
[2016-04-21 21:04] LABS: CK-MB < 0.22 ng/ml (0.0-2.4)
[2016-04-21 21:06] LABS: TROPONIN-I < 0.012 ng/ml (0.00-0.12)
[2016-04-21] MEDS: METOPROLOL 25 MG TAB PO SCH (22:03)
[2016-04-21] MEDS: FAMOTIDINE 20 MG TAB PO SCH (22:04)
[2016-04-21] MEDS ORDERED: IOHEXOL 100 ML ONE (23:35)
[2016-04-21] MEDS ORDERED: SOD CHLORIDE 0.9% 100 ML ONE (23:35)
[2016-04-22] VITALS (13 sets, daily range): BP systolic 100–143; BP diastolic 59–97; PULSE 67–155; RESP 18–20
[2016-04-22] MEDS ORDERED: IOHEXOL 100 ML ONE (00:19)
--- NOTE | 2016-04-22 05:39 | HP ---
DATE OF ADMISSION: 04/21/2016 PRESENTING COMPLAINT: Palpitations. HISTORY OF PRESENTING COMPLAINT: Paulina is a 25-year-old obese female who presents with on and off palpitations for the last 1 month. Palpitations are not exactly precipitated by any known factor, a nd they do occur at different times during the day. They are associated with chest pressure and a f eeling of inability to breathe or take a deep breath. She has been dealing with this and has been t o multiple emergency rooms and urgent cares and is usually just treated for anxiety. She states stone t the anxiety medications which she has been given which include Ativan and Paxil do work for a shor t period but symptoms eventually come back. The patient reports also that she has not been sleeping well because the palpitations and inability to breathe wakes her up from sleep and she is unable to go back to sleep. She does note that she is anxious, but she believes that it is because of her sy mptoms and not the other way around. She was able to see a publication designer yesterday who started her o n some metoprolol and order thyroid studies. She took 2 doses of the metoprolol and had episodes of shortness of breath, and because of that, she stopped. She called the publication designer because of the symptoms recorded, and he advised her to go to the emergency room. When she got to the emergency ro om, she was noted to be in sinus tachycardia, and the publication designer recommended for admission for fur ther workup and management. She has no history of recent travel. She used to work at until h er symptoms became too troublesome for her to keep working. She has no family history of thyroid di sease, and there is no similar episode in anyone in her family. She was also recently diagnosed wit h high blood pressure at the cardiology visit yesterday. She has a past surgical history of cholecy stectomy. PAST MEDICAL HISTORY: Anxiety, hypertension, and recurrent palpitations. FAMILY HISTORY: Positive for diabetes mellitus and high blood pressure in her father and breast can cer in her mother. REVIEW OF SYSTEMS: Positive for diarrhea over the last 2 weeks. The patient had 2 to 3 episodes of watery bowel movements daily but normal color and no blood in it. She has also had reduced appetit e and poor sleep. She does not feel she is depressed. She does note family stressors but does not think these are anything new. She denies mood or thought disorders. She denies cough. She denies pleuritic chest pain. She has occasional headaches. She has had numbness on the face and her left upper extremity at some point but does not have those currently. She denies abdominal pain. All ot her systems in a 12-point review of systems were reviewed and negative. HOME MEDICATIONS: Positive only for Ativan and Paxil. SOCIAL HISTORY: The patient denies illicit drug use. Denies marijuana use. Denies tobacco use and would drink alcohol only occasionally. The patient states she has tried marijuana a couple of lena hs ago but it did not go down well with her. She has not continued. PHYSICAL EXAMINATION: VITAL SIGNS: Her heard rate was indeed elevated ranging in the 90s to 116, blood pressure controlle d, however, at 122/87, saturations 98% on room air, and temperature 98.1. GENERAL: Obese female who was quite anxious. HEENT: Head is normocephalic. Pupils are equal and reactive. Mucous membranes are moist. Posteri or pharynx clear of erythema and exudate. NECK: Supple without thyromegaly, without JVD. CHEST: Clear to auscultation with good air entry on both sides. CARDIOVASCULAR: Sinus tachycardia without murmurs. ABDOMEN: Obese, soft, nontender, nondistended with normoactive bowel sounds. EXTREMITIES: No lower extremity edema. SKIN: Devoid of rash or jaundice. LABORATORY VALUES: So far lab values reveal that the patient has a normal TSH. Her first troponin is negative. She does have mildly elevated LFTs which I cannot really explain. She has hypokalemia of 3.4 and an elevated anion gap of 19, but the rest of her basic metabolic profile is unremarkable . Coag profile was unremarkable. Urinalysis is pending. Urine toxicology screen is also pending. IMAGING: A chest x-ray showed no acute cardiopulmonary disease. Echocardiogram has been done and i s yet to be read. On a previous evaluation, the patient had a brain CT that showed no acute hemorrh age. ASSESSMENT: A 25-year-old female with 1. Persistent symptomatic sinus tachycardia, source unclear, for which differential includes thyroi d disease versus adrenal disease. The patient could also have a pulmonary embolus, and this could b e inappropriate sinus tachycardia. We will also rule out an acute coronary syndrome and proceed fro m there. 2. Newly diagnosed hypertension with good control on beta raheem therapy. 3. Obesity. 4. Anxiety. IMPRESSION: The plan essentially is to admit her to telemetry floor. Nelson labs to rule out th e above differential. I think she will benefit from adrenal workup as well as a CT of the chest to rule out a PE causing her symptoms. In the setting of diarrhea, I am concerned about a pheochromocy paddy; however, the patient does have sweatiness and has not had any weight loss. We will consult Dr Walsh as well to follow in house. Further interventions will depend on our findings. I have revi ewed this plan of care with the patient. I have answered questions. Of note is that I reviewed her EKG and it just showed sinus tachycardia. For prophylaxis, she is encouraged to ambulate as much a s possible and SCDs while in bed. Gastrointestinal prophylaxis is not indicated at this time. Dictated By: JACINTO NOVA MD, BA/ROBERT Conf#: [id number] DID#: [id number]
[2016-04-22 07:37] LABS: T3 UPTAKE 42.3 % (23.5-40.5)
[2016-04-22] MEDS: FAMOTIDINE 20 MG TAB PO SCH ×2 (08:28→21:43)
[2016-04-22] MEDS: METOPROLOL 25 MG TAB PO SCH (08:28)
[2016-04-22] MEDS: DILTIAZEM 30 MG TAB PO SCH ×4 (08:29→21:49)
[2016-04-22] MEDS: ALPRAZOLAM 0.25 MG TAB PO PRN (11:47)
--- NOTE | 2016-04-22 15:28 | RADRPT ---
PROCEDURE: CTA Chest. CLINICAL INDICATION: Shortness of breath. Rule out pulmonary embolus. TECHNIQUE: No images were performed. The study will be repeated the following day. CTDI: 246.5 and DLP: 123 One or more of the following dose reduction techniques were used: - Automated exposure control. - Adjustment of the mA and/or kV according to patient size. Use of iterative reconstruction technique. COMPARISON: Chest x-ray 04/13/2016. FINDINGS: The study was cancelled. No images were obtained. The technologist states the study will be repeated tomorrow. No explanation is given. Contact Ad Freitas for more detail is needed. IMPRESSION: 1. Failed CT angiogram of the chest. RPTAT:AAJJ Physician Nannette Date Time Electronically viewed and signed by Physician Nannette on 04/22/2016 15:27 /
--- NOTE | 2016-04-22 16:07 | CONS ---
Date/Time of Note Date/Time of Note DATE: 04/22/16 TIME: 16:03 Assessment/Plan Assessment/Plan Additional Assessment/Plan Sinus tachycardia Hypertension Preserved ejection fraction Obesity Anxiety -Patient with multiple hospital visits secondary to palpitations, flushing, shortness of breath and possible anxiety. Undergoing workup including MRA of renals as well as MRI of abdomen to evaluate adrenal glands. Telemetry reviewed with episodes of sinus tachycardia. Patient currently on Lopressor as well as Cardizem. Blood pressure currently well controlled. Would change Cardizem to long-acting. Consultation Date/Type/Reason Admit Date/Time Apr 21, 2016 at 09:52 Initial Consult Date 04/21/16 Type of Consultation: cv Referring Provider: ADELIA MYLES 24 HR Interval Summary Free Text/Dictation Patient with episodes of palpitations today, anxiety, flushing. Exam/Review of Systems Vital Signs Vitals Vital Signs Date Time Temp Pulse Resp B/P Pulse Ox O2 Delivery O2 Flow Rate FiO2 04/22/16 13:11 96 04/22/16 10:50 98.4 18 122/70 95 04/21/16 14:23 Room Air Intake and Output 04/21/16 04/21/16 04/22/16 15:00 23:00 07:00 Intake Total 480 ml 400 ml Balance 480 ml 400 ml Exam No apparent distress Constitutional: alert, obese, oriented Head: normocephalic Neck: supple Respiratory: clear to auscultation, normal air movement Cardiovascular: other (S1 and S2 heard, no murmurs appreciated), regular rate and rhythm Gastrointestinal: bowel sounds, non-tender, other (no guarding), soft Extremities: other (no edema) Results Result Diagram: 04/21/1690504/21/16 09 Results 24 hrs Laboratory Tests Test 04/21/16 16:15 04/21/16 19:00 04/21/16 20:21 04/22/16 05:43 Urine Bacteria MODERATE Urine Bilirubin 1+ H Urine Clarity CLOUDY Urine Color LT. YELLOW Urine Glucose NEGATIVE Urine Hemoglobin 3+ H Urine Ictotest NEGATIVE Urine Ketones 3+ H Urine Leukocyte Esterase 1+ H Urine Microscopic RBC 0-2 Urine Microscopic WBC 2-5 Urine Nitrite NEGATIVE Urine Specific [place] 1.020 Urine Squamous Epithelial Cells FEW Urine Total Protein TRACE Urine Urobilinogen 1.0 E.U./dL Urine pH 7.0 Urine Amphetamines Screen Negative Urine Barbiturates Negative Urine Benzodiazepines Screen Negative Urine Cannabinoids Negative Urine Cocaine Screen Negative Urine Opiates Screen Negative Creatine Kinase 43 Creatine Kinase Index 0.5 Creatinine Kinase MB (Mass) < 0.22 Troponin I < 0.012 Free Thyroxine Index 3.13 Random Cortisol 12.7 Thyroxine (T4) 7.4 Triiodothyronine (T3) Uptake 42.3 H Medications Medications Current Medications Metoprolol Tartrate (Lopressor) 25 mg BID PO Last administered on 04/22/16 08: 28; Admin Dose 25 MG; Start 04/21/16 at 21:00 Alprazolam (Xanax) 0.25 mg Q8H PRN PO ANXIETY Last administered on 04/22/16 11: 47; Admin Dose 0.25 MG; Start 04/21/16 at 16:00 Diltiazem HCl (Cardizem) 30 mg QID PO Last administered on 04/22/16 12:07; Admin Dose 30 MG; Start 04/21/16 at 17:00 Morphine Sulfate (morphine) 2 mg Q4H PRN IV pain; Start 04/21/16 at 16:30 Famotidine (Pepcid) 20 mg BID PO Last administered on 04/22/16 08:28; Admin Dose 20 MG; Start 04/21/16 at 21:00 Terrance Heath DO Apr 22, 2016 16:07
--- NOTE | 2016-04-22 16:09 | RADRPT ---
PROCEDURE: CT angiography of the chest with contrast. CLINICAL INDICATION: Shortness of breath, evaluate for pulmonary emboli. TECHNIQUE: Contrast enhanced angiography of the chest was performed on a high resolution multi det mary ellen scanner during the administration of intravenous contrast. Multiplanar reconstructions, three- dimensional reconstructions, as well as maximal intensity projection images are produced and reviewe d. One or more of the following dose reduction techniques were used: Automated exposure control; Adj ustment of the mA and/or kV according to patient size; Use of iterative reconstruction technique. CT DI = 35, 19 mGy. DLP = 707 mGy-cm. CONTRAST: 90 ml Omnipaque 350 administered without adverse event. COMPARISON: Ethylbenzene Converter Operator image from attempted CT of the chest 04/21/2016 FINDINGS: No evidence of central or segmental pulmonary emboli. Subsegmental branches are not well visualized due to patient respiratory motion artifact. Pulmonary artery configuration: Normal caliber. Lung parenchyma: Minimal dependent edema seen in the lung bases. No acute air space infiltrates. Airways: Clear; normal caliber and configuration. Aorta: Ungated examination demonstrates normal caliber. Bovine branching pattern is noted. Thoracic veins: Normal appearance for the phase of enhancement. Heart: Ungated examination demonstrates mild cardiomegaly. Mediastinum: Normal. Lymph nodes: No mediastinal, hilar, or axillary lymphadenopathy Osseous structures: Intact. Visualized upper abdomen: Status post cholecystectomy. IMPRESSION: No evidence of central or segmental pulmonary emboli. Subsegmental branches are not well visualized due to patient respiratory motion artifact. No acute air space infiltrates. RPTAT: AADD .Caleb Alarcon MD, MD Date Time Electronically viewed and signed by .Caleb Alarcon MD, MD on 04/22/2016 16:09 .B/
--- NOTE | 2016-04-22 20:04 | PN ---
Date/Time of Note Date/Time of Note DATE: 04/22/16 TIME: 19:59 Assessment/Plan VTE Prophylaxis VTE Prophylaxis Intervention: SCD's Lines/Catheters IV Catheter Type (from Nrs): Saline Lock Assessment/Plan Assessment/Plan 1. Persistent symptomatic sinus tachycardia, source unclear, for which differential includes thyroid disease versus adrenal disease. The patient could also have a pulmonary embolus, and this could be inappropriate sinus tachycardia. * Cortisol levels wnl / thyroid profile wnl / f/u imaging studies * Continue Cardizem / cardiology will adjust meds for better heart rate control * ?EPS consult 2. Newly diagnosed hypertension with good control on CCB therapy. 3. Obesity. 4. Anxiety. Subjective 24 Hr Interval Summary Free Text/Dictation still with palpitations and anxiety MRI / CT not done Exam/Review of Systems Vital Signs Vitals Vital Signs Date Time Temp Pulse Resp B/P Pulse Ox O2 Delivery O2 Flow Rate FiO2 04/22/16 18:57 98.3 104 18 132/72 98 04/22/16 17:00 Room Air Intake and Output 04/21/16 04/21/16 04/22/16 15:00 23:00 07:00 Intake Total 480 ml 400 ml Balance 480 ml 400 ml Exam GENERAL: Obese female who was quite anxious. HEENT: Head is normocephalic. Pupils are equal and reactive. Mucous membranes are moist. Posterior pharynx clear of erythema and exudate. NECK: Supple without thyromegaly, without JVD. CHEST: Clear to auscultation with good air entry on both sides. CARDIOVASCULAR: Sinus tachycardia without murmurs. ABDOMEN: Obese, soft, nontender, nondistended with normoactive bowel sounds. EXTREMITIES: No lower extremity edema. SKIN: Devoid of rash or jaundice. Results Result Diagram: 04/21/1690504/21/16905 Results 24 hrs Laboratory Tests Test 04/21/16 20:21 04/22/16 05:43 Creatine Kinase 43 Creatine Kinase Index 0.5 Creatinine Kinase MB (Mass) < 0.22 Troponin I < 0.012 Free Thyroxine Index 3.13 Random Cortisol 12.7 Thyroxine (T4) 7.4 Triiodothyronine (T3) Uptake 42.3 H Medications Medications Current Medications Alprazolam (Xanax) 0.25 mg Q8H PRN PO ANXIETY Last administered on 04/22/16 11: 47; Admin Dose 0.25 MG; Start 04/21/16 at 16:00 Diltiazem HCl (Cardizem) 30 mg QID PO Last administered on 04/22/16 17:16; Admin Dose 30 MG; Start 04/21/16 at 17:00; Stop 04/22/16 at 22:00 Morphine Sulfate (morphine) 2 mg Q4H PRN IV pain; Start 04/21/16 at 16:30 Famotidine (Pepcid) 20 mg BID PO Last administered on 04/22/16 08:28; Admin Dose 20 MG; Start 04/21/16 at 21:00 Metoprolol Tartrate (Lopressor) 12.5 mg BID PO ; Start 04/23/16 at 09:00 Diltiazem HCl (Cardizem Cd) 120 mg DAILY PO ; Start 04/23/16 at 09:00 Metoprolol Tartrate (Lopressor) 25 mg ONCE ONCE PO ; Start 04/22/16 at 21:00; Stop 04/22/16 at 21:01 Procedures Procedures PROCEDURE: CTA Chest. CLINICAL INDICATION: Shortness of breath. Rule out pulmonary embolus. TECHNIQUE: No images were performed. The study will be repeated the following day. CTDI: 246.5 and DLP: 123 One or more of the following dose reduction techniques were used: - Automated exposure control. - Adjustment of the mA and/or kV according to patient size. Use of iterative reconstruction technique. COMPARISON: Chest x-ray 04/13/2016. FINDINGS: The study was cancelled. No images were obtained. The technologist states the study will be repeated tomorrow. No explanation is given. Contact Ad Freitas for more detail is needed. IMPRESSION: 1. Failed CT angiogram of the chest. RPTAT:AAJJ Physician Nannette Date Time Electronically viewed and signed by Warren Vogt, Physician on 04/22/2016 15:27 JACINTO NOVA Apr 22, 2016 20:03
[2016-04-22] MEDS ORDERED: METOPROLOL 25 MG TAB PO ONE (21:00)
[2016-04-23] VITALS (10 sets, daily range): BP systolic 102–134; BP diastolic 59–80; PULSE 63–92; RESP 19–20
[2016-04-23] MEDS: ALPRAZOLAM 0.25 MG TAB PO PRN ×3 (01:20→18:12)
[2016-04-23] MEDS: FAMOTIDINE 20 MG TAB PO SCH (08:53)
[2016-04-23] MEDS ORDERED: DILTIAZEM (CD) 120 MG CAP PO SCH (09:00)
[2016-04-23] MEDS ORDERED: METOPROLOL 25 MG TAB PO SCH (09:00)
--- NOTE | 2016-04-23 10:03 | PN ---
Date/Time of Note Date/Time of Note DATE: 04/23/16 TIME: 09:59 Assessment/Plan VTE Prophylaxis VTE Prophylaxis Intervention: SCD's Lines/Catheters IV Catheter Type (from Nrsg): Peripheral IV Assessment/Plan Assessment/Plan 1. Persistent symptomatic sinus tachycardia, source unclear, CT chest angiogram negative for PE * Cortisol levels wnl / thyroid profile wnl / f/u imaging studies * Continue Cardizem / cardiology will adjust meds for better heart rate control * ?EPS consult 2. Newly diagnosed hypertension with good control on CCB therapy. 3. Obesity. 4. Anxiety. ativan prn axiety, Plan for MRI abdomen to rule out any adrenal anomaly, if normal then plan for d/c Subjective 24 Hr Interval Summary Free Text/Dictation pt has anxiety, multiple admission, will plan for MRI abd today Exam/Review of Systems Vital Signs Vitals Vital Signs Date Time Temp Pulse Resp B/P Pulse Ox O2 Delivery O2 Flow Rate FiO2 04/23/16 09:05 91 04/23/16 07:46 98.3 20 134/71 99 04/23/16 03:39 Room Air Intake and Output 04/22/16 04/22/16 04/23/16 15:00 23:00 07:00 Intake Total 860 ml Output Total 2000 ml Balance -1140 ml Exam GENERAL: Obese female who was quite anxious. HEENT: Head is normocephalic. Pupils are equal and reactive. Mucous membranes are moist. Posterior pharynx clear of erythema and exudate. NECK: Supple without thyromegaly, without JVD. CHEST: Clear to auscultation with good air entry on both sides. CARDIOVASCULAR: Sinus tachycardia without murmurs. ABDOMEN: Obese, soft, nontender, nondistended with normoactive bowel sounds. EXTREMITIES: No lower extremity edema. SKIN: Devoid of rash or jaundice. Results Result Diagram: 04/21/1690504/21/16905 Medications Medications Current Medications Alprazolam (Xanax) 0.25 mg Q8H PRN PO ANXIETY Last administered on 04/23/16t 08: 52; Admin Dose 0.25 MG; Start 04/21/16 at 16:00 Morphine Sulfate (morphine) 2 mg Q4H PRN IV pain; Start 04/21/16 at 16:30 Famotidine (Pepcid) 20 mg BID PO Last administered on 04/23/16 08:53; Admin Dose 20 MG; Start 04/21/16 at 21:00 Metoprolol Tartrate (Lopressor) 12.5 mg BID PO Last administered on 04/23/16 08 :53; Admin Dose 12.5 MG; Start 04/23/16 at 09:00 Diltiazem HCl (Cardizem Cd) 120 mg DAILY PO Last administered on 04/23/16 08:53 ; Admin Dose 120 MG; Start 04/23/16 at 09:00 LIVIA GLASER MD Apr 23, 2016 10:03
--- NOTE | 2016-04-23 10:04 | PDOCDIS ---
Discharge Instructions CONDITION Patient Condition: Good HOME CARE INSTRUCTIONS: Special Diet: Regular diet ACTIVITY: Activity Restrictions: Slowly Increase Activity Rest between Activity Avoid heavy lifting FOLLOW UP/APPOINTMENTS Appointments follow up with her own PMD through HMO insurance in 1-2 week. follow up with cardiology as outpatient in 2-3 weeks LIVIA GLASER MD Apr 23, 2016 10:04
[2016-04-23] MEDS ORDERED: METO-448 PO (10:05)
[2016-04-23] MEDS ORDERED: ALPRAZOLAM 0.25 MG TAB PO ONE (12:00)
[2016-04-23] MEDS ORDERED: FLECAINIDE 50 MG TAB PO SCH (12:30)
[2016-04-23] MEDS ORDERED: FLECAINIDE 100 MG TAB PO SCH (12:30)
--- NOTE | 2016-04-23 16:24 | RADRPT ---
PROCEDURE: MRI abdomen with contrast CLINICAL INDICATION: Possible renal artery stenosis or adrenal adenoma TECHNIQUE: An MRI of the abdomen was performed utilizing a high field MRI scanner with the following pulsed seq uences: Axial T2 fast spin-echo, axial T2 non-fat saturation fast spin-echo, axial T1 gradient echo in-phase and opposed-phase. Coronal BFFE T2-weighted images and coronal T2 fat saturation images we re obtained. Single coronal MRCP image was also obtained. In addition, axial T1 gradient-echo post-p hase fat saturation pre- and post-contrast images were obtained after the uncomplicated intravenous administration of 20 ml of Magnevist. Axial and coronal postcontrast images were obtained. COMPARISON: CT angiogram of the chest 04/22/2016 FINDINGS: There is motion seen on the postcontrast images in the coronal plane and this limits the evaluation for renal artery stenosis. Axial images demonstrate no gross focal abnormality. There is normal signal intensity and enhancement of the liver with no evidence of mass or biliary du ct dilatation. The gallbladder is removed. There is contrast opacification of the portal vein. The spleen is unremarkable without enlargement or focal lesion. Adrenal glands are within normal boss its bilaterally without mass. The kidneys enhance symmetrically without hydronephrosis or perinephri c stranding. The pancreas has homogeneous/normal signal intensity with no evidence of focal lesion o r surrounding inflammatory changes. There are no enlarged lymph nodes. There is no acute osseous abnormality. There is no evidence of bowel obstruction or inflammatory changes in the mesentery or free fluid. IMPRESSION: The study is limited for the evaluation of renal artery stenosis secondary to technique and motion. No gross abnormalities seen on the axial images. If there is further concern then a CT angiogram o f the renal arteries is recommended. No evidence of adrenal mass or nodule. No inflammatory changes of the abdomen. RPTAT: AA .Nadia Padgett MD, Date Time Electronically viewed and signed by .Nadia Padgett MD, MD on 04/23/2016 16:24 .Xiao/
--- NOTE | 2016-04-23 16:53 | CONS ---
Date/Time of Note Date/Time of Note DATE: 04/23/16 TIME: 16:51 Assessment/Plan Assessment/Plan Additional Assessment/Plan Atrial tachycardia Hypertension Preserved ejection fraction Obesity Anxiety -Telemetry reviewed with episodes of atrial tachycardia noted this morning. Patient seen by electrophysiology. Plan for outpatient evaluation. Would initiate flecainide 50 mg twice a day with the addition of Cardizem 120 mg daily. DC planning Consultation Date/Type/Reason Admit Date/Time Apr 21, 2016 at 09:52 Initial Consult Date 04/21/16 Type of Consultation: cv Referring Provider: ADELIA MYLES 24 HR Interval Summary Free Text/Dictation Episodes of palpitations this morning, denies shortness of breath or dizziness Exam/Review of Systems Vital Signs Vitals Vital Signs Date Time Temp Pulse Resp B/P Pulse Ox O2 Delivery O2 Flow Rate FiO2 04/23/16 16:13 98.3 93 20 126/66 98 04/23/16 03:39 Room Air Intake and Output 04/22/16 04/22/16 04/23/16 14:59 22:59 06:59 Intake Total 860 ml Output Total 2000 ml Balance -1140 ml Exam No apparent distress Constitutional: alert, obese, oriented Head: normocephalic Neck: supple Respiratory: clear to auscultation, normal air movement Cardiovascular: other (S1 and S2 heard), regular rate and rhythm Gastrointestinal: bowel sounds, non-tender, other (no guarding), soft Extremities: other (no edema) Results Result Diagram: 04/21/1690504/21/16 0906 Medications Medications Current Medications Alprazolam (Xanax) 0.25 mg Q8H PRN PO ANXIETY Last administered on 04/23/16 08: 52; Admin Dose 0.25 MG; Start 04/21/16 at 16:00 Morphine Sulfate (morphine) 2 mg Q4H PRN IV pain; Start 04/21/16 at 16:30 Famotidine (Pepcid) 20 mg BID PO Last administered on 04/23/16 08:53; Admin Dose 20 MG; Start 04/21/16 at 21:00 Metoprolol Tartrate (Lopressor) 12.5 mg BID PO Last administered on 04/23/16 08 :53; Admin Dose 12.5 MG; Start 04/23/16 at 09:00 Diltiazem HCl (Cardizem Cd) 120 mg DAILY PO Last administered on 04/23/16t 08:53 ; Admin Dose 120 MG; Start 04/23/16 at 09:00 Flecainide Acetate (Tambocor) 50 mg BID PO ; Start 04/23/16 at 12:30 Terrance Heath DO Apr 23, 2016 16:53
[2016-04-23] MEDS ORDERED: FLEC50TA PO (16:56)
[2016-04-23] MEDS ORDERED: DILT120C77 PO (16:56)
--- NOTE | 2016-04-24 17:33 | DS ---
DATE OF ADMISSION: 04/21/2016 DATE OF DISCHARGE: 04/23/2016 FINAL DISCHARGE DIAGNOSES: 1. Acute supraventricular tachycardia. 2. Acute anxiety. 3. Palpitations secondary to supraventricular tachycardia. 4. Symptomatic palpitations, intermittent tachycardia. 5. History of hypertension, newly diagnosed. 6. Morbid obesity. 7. Severe anxiety. CONSULTATIONS DONE DURING THIS HOSPITALIZATION: Cardiology consult, Dr. Terrance Heath. PROCEDURES PERFORMED DURING THIS HOSPITALIZATION: The patient had echocardiogram done on 04/21/2016 which revealed ejection fraction of 60% with no evidence of any diastolic dysfunction. The patient also had an MRI of abdomen done which was negative for any adrenal mass or any lesions. The patien t has no evidence of renal artery stenosis. HOSPITAL COURSE: This is a 25-year-old female who has a past medical history of newly diagnosed hyp ertension, history of severe anxiety who has been on Ativan at home. She presented with a complaint of palpitations. The patient is noted to have acute supraventricular tachycardia associated with s evere anxiety. She was given metoprolol and IV Cardizem. The rate was controlled. She was evaluat ed by custom seamstress, Dr. Terrance Heath and had an echocardiogram done which revealed a normal ejecti on fraction. The patient was prescribed for Cardizem and also given flecainide for her rate control and she was also using Ativan p.r.n. anxiety at home. The patient is advised to stop her metoprolo l upon discharge and she gets discharged home with followup with her primary care doctor and also to follow up with the custom seamstress. DISPOSITION: To home. DISCHARGE CONDITION: Stable and improved compared to admission. DISCHARGE ACTIVITIES: As tolerated, slowly resume normal baseline activity. DISCHARGE DIET: Low fat, low sodium diet. DISCHARGE MEDICATIONS: As per medical reconciliation. She is given prescription of Cardizem 120 mg p.o. daily and flecainide 50 mg p.o. b.i.d. DISCHARGE FOLLOWUP AND INSTRUCTIONS 1. The patient is to follow up with her own primary care doctor through her HMO insurance in 1 to 2 weeks after discharge. 2. The patient is to follow up with her custom seamstress, Dr. Terrance Heath as an outpatient in 1 to 2 weeks after discharge. 3. She has been explained about the discharge plan and followup instructions. She understood and v erbalized understanding. Dictated By: LIVIA GLASER MD, KP/ROBERT Conf#: [id number] DID#: [id number]
== END 2016-04-23 19:00 | disposition home or self-care (01) ==
LOC: E/R 08:35 → TEL 09:52
PROVIDERS: ADMIT Internal Medicine Nephrology; ATTEND Internal Medicine Nephrology
DX: R00.2 Palpitations (principal); R00.0 Tachycardia, unspecified; I10 Essential (primary) hypertension; F41.9 Anxiety disorder, unspecified; E66.9 Obesity, unspecified; Z68.41 Body mass index [BMI] 40.0-44.9, adult
CPT/HCPCS: 36415; 71010; 71275; 74183; 80048; 80076; 80307; 81001; 82533; 82550; 82553; 83540; 83735; 84436; 84443; 84479; 84484; 84703; 85025; 85610; 85730; 87081; 93005; 93306; Q9967; Z7500; Z7502; Z7610; 81003; G0378

== ENCOUNTER 2016-04-25 03:08 | Emergency (ER) | payer OTHER ==
[~2016-04-25] VITALS: Ht 160 cm; Wt 109.0 kg
[~2016-04-25 03:08] MED LIST changes: +DILT120C77 PO; +FLEC50TA PO; +LORA1TAB PO; +METO-448 PO
[2016-04-25] MEDS ORDERED: SOD CHLORIDE 0.9% 1,000 ML IV STA (03:09)
[2016-04-25] MEDS ORDERED: METOPROLOL 5 MG INJ IV STA (03:09)
[2016-04-25 03:10] VITALS: Ht 160 cm; Wt 109.0 kg
[2016-04-25] MEDS ORDERED: LORAZEPAM 2 MG INJ IV ONE (03:30)
--- NOTE | 2016-04-25 03:38 | RADRPT ---
PROCEDURE: XR Chest. CLINICAL INDICATION: Chest Pain. Allergic reaction TECHNIQUE: Single frontal chest x-ray. COMPARISON: 04/21/2016 FINDINGS: The lungs are clear. No focal opacification is seen. The cardiomediastinal silhouette is unremarka ble. The osseous structures are unremarkable. Minimal elevation of the right hemidiaphragm again s een. ECG leads projected over the chest. IMPRESSION: 1. There is no acute cardiopulmonary process. RPTAT: HJES .Christopher Soni MD, Date Time Electronically viewed and signed by .Christopher Soni MD, on 04/25/2016 03:37 .S/
[2016-04-25 03:46] LABS: BASOPHILS % 0.2 % (0.0-2.0); EOSINOPHILS # 0.1 10^3/ul (0.0-0.5); EOSINOPHILS % 1.1 % (0.0-7.0); HEMATOCRIT 44.2 % (37.0-47.0); HEMOGLOBIN 14.9 g/dl (12.0-16.0); LYMPHOCYTES # 1.5 10^3/ul (0.8-2.9); LYMPHOCYTES % 14.6 % (15.0-51.0); MEAN CORPUSCULAR HEMOGLOBIN 28.5 pg (29.0-33.0); MEAN CORPUSCULAR HGB CONC 33.8 g/dl (32.0-37.0); MEAN CORPUSCULAR VOLUME 84.4 fl (82.0-101.0); MEAN PLATELET VOLUME 9.8 fl (7.4-10.4); MONOCYTE # 0.6 10^3/ul (0.3-0.9); MONOCYTES % 5.8 % (0.0-11.0); NEUTROPHIL # 7.8 10^3/ul (1.6-7.5); NEUTROPHILS % 78.3 % (39.0-77.0); PLATELET COUNT 277 10^3/UL (140-440); RED BLOOD COUNT 5.23 10^6/ul (4.20-5.40); RED CELL DISTRIBUTION WIDTH 13.2 % (11.5-14.5)
[2016-04-25 03:51] LABS: CONDITION 1
[2016-04-25 03:57] LABS: CHLORIDE 107 mmol/L (97-110); INR 1.08; POTASSIUM 3.4 mmol/L (3.5-5.1); PT RATIO 1.1; SODIUM 144 mmol/L (135-144)
[2016-04-25 03:58] LABS: PARTIAL THROMBOPLASTIN TIME 27.2 Sec (25.0-35.0)
[2016-04-25 03:59] LABS: CREATININE 0.65 mg/dl (0.44-1.00)
[2016-04-25 04:00] LABS: ANION GAP 20 (8-16); BLOOD UREA NITROGEN 7 mg/dl (7-20); CALCIUM 9.3 mg/dl (8.4-10.2); CARBON DIOXIDE 20 mmol/L (21-31); GLUCOSE 113 mg/dl (70-220)
[2016-04-25 04:13] LABS: TROPONIN-I < 0.012 ng/ml (0.00-0.12)
--- NOTE | 2016-04-25 05:24 | ERD ---
ER Documentation Chief Complaint Date/Time DATE: 04/25/16 TIME: 05:21 Chief Complaint feeling of throat tight, SOB, rash in groin. no acute distress noted. HPI This is a 25-year-old female comes in with palpitations.. Patient was here earlier in the night with SVT. Patient denies any fevers or chills nausea vomiting or chest pain. ROS All systems reviewed and are negative except as per history of present illness. Medications Home Meds Active Scripts Flecainide Acetate* (Flecainide Acetate*) 50 Mg Tablet, 50 MG PO BID for 60 Days , TAB Prov:Terrance Heath DO 04/23/16 Diltiazem Hcl* (Cardizem CD*) 120 Mg Cap.sr.24h, 120 MG PO DAILY for 30 Days Prov:Terrance Heath DO 04/23/16 Reported Medications Lorazepam* (Lorazepam*) 1 Mg Tablet, 1 MG PO Q4 Y for ANXIETY, #60 TAB 04/21/16 Discontinued Scripts Metoprolol Tartrate* (Lopressor*) 25 Mg Tab, 25 MG PO BID, #60 TAB Prov:LIVIA GLASER MD 04/23/16 Ciprofloxacin Hcl* (Ciprofloxacin Hcl*) 500 Mg Tablet, 500 MG PO BID for 3 Days , TAB Prov:ALISTAIR MEJIA NP 04/16/16 Sodium Chloride (Saline Nasal Crowder) 30 Ml Crowder, 30 ML NS BID, #1 SPRAY Prov:ALISTAIR MEJIA NP 04/16/16 Alprazolam* (Xanax*) 0.25 Mg Tablet, 0.25 MG PO Q8H Y for ANXIETY, #15 TAB Prov:ALISTAIR MEJIA NP 04/16/16 Buspirone Hcl* (Buspar*) 5 Mg Tab, 5 MG PO BID, #14 TAB Prov:ANDERSON VEGA DO 04/13/16 Sodium Chloride (Saline Nasal Crowder) 30 Ml Crowder, 2 SPRAYS NS Q2H Y for NASAL CONGESTION, #1 BOTTLE Prov:ROLAN JUÁREZ NP 11/24/15 Fluticasone Propionate (Flonase Allergy Relief) 9.9 Ml Crowder.susp, 1 SPRAY NASAL DAILY, #1 BOTTLE TO EACH NOSTRIL Prov:ROLAN JUÁREZ NP 11/24/15 Ondansetron Hcl* (Zofran* ODT) 4 mg -ODT Tab.disper, 4 MG PO Q8 Y for NAUSEA AND /OR VOMITING, #30 TAB Prov:HECTOR SALTER NP 01/06/15 Nitrofurantoin Monohyd Macrocr* (Macrobid*) 100 Mg Capsr, 100 MG PO BID for 7 Days, CAP Prov:HECTOR SALTER NP 01/06/15 Allergies Allergies: Coded Allergies: Penicillins (Verified Allergy, Mild, RASH, 04/21/16) codeine (Verified Allergy, Mild, RASH, 04/21/16) nitrofurantoin (Verified Allergy, Unknown, 04/21/16) Uncoded Allergies: GI COCKTAIL (Allergy, Unknown, hives, 01/05/15) PMhx/Soc History of Surgery: Yes (CHOLECYSTECTOMY 2014) Anesthesia Reaction: No Hx Neurological Disorder: No Hx Respiratory Disorders: No Hx Cardiac Disorders: Yes (HTN, SVT) Hx Psychiatric Problems: No Hx Miscellaneous Medical Probl: Yes (ANXIETY) Hx Alcohol Use: Yes (OCCASIONAL) Hx Substance Use: No Hx Tobacco Use: No Smoking Status: Never smoker Physical Exam Vitals Vital Signs Date Time Temp Pulse Resp B/P Pulse Ox O2 Delivery O2 Flow Rate FiO2 04/25/16 04:30 97.8 77 20 111/84 99 Room Air 04/25/16 03:15 97.8 100 20 122/81 100 Room Air 04/25/16 03:10 97.8 140 20 124/84 97 Physical Exam Const: [] Head: Atraumatic Eyes: Normal Conjunctiva ENT: Normal External Ears, Nose and Mouth. Neck: Full range of motion..~ No meningismus. Resp: Clear to auscultation bilaterally Cardio: Regular rate and rhythm, no murmurs Abd: Soft, non tender, non distended. Normal bowel sounds Skin: No petechiae or rashes Back: No midline or flank tenderness Ext: No cyanosis, or edema Neur: Awake and alert Psych: Normal Mood and Affect Result Diagram: 04/25/16 0300 04/25/16 0300 Results 24 hrs Laboratory Tests Test 04/25/16 03:00 Activated Partial Thromboplast Time 27.2Sec Anion Gap 20 Basophils # 0.010^3/ul Basophils % 0.2% Blood Morphology Comment Blood Urea Nitrogen 7mg/dl Calcium Level 9.3mg/dl Carbon Dioxide Level 20mmol/L Chloride Level 107mmol/L Creatinine 0.65mg/dl Eosinophils # 0.110^3/ul Eosinophils % 1.1% Glucose Level 113mg/dl Hematocrit 44.2% Hemoglobin 14.9g/dl INR International Normalized Ratio 1.08 Lymphocytes # 1.510^3/ul Lymphocytes % 14.6% Mean Corpuscular Hemoglobin 28.5pg Mean Corpuscular Hemoglobin Concent 33.8g/dl Mean Corpuscular Volume 84.4fl Mean Platelet Volume 9.8fl Monocytes # 0.610^3/ul Monocytes % 5.8% Neutrophils # 7.810^3/ul Neutrophils % 78.3% Nucleated Red Blood Cells # 0.010^3/ul Nucleated Red Blood Cells % 0.0/100WBC Platelet Count 18602^3/UL Potassium Level 3.4mmol/L Prothrombin Time 14.0Sec Prothrombin Time Ratio 1.1 Red Blood Count 5.2310^6/ul Red Cell Distribution Width 13.2% Sodium Level 144mmol/L Troponin I < 0.012ng/ml White Blood Count 10.010^3/ul Current Medications Medications (Trade) Dose Ordered Sig/Samantha Route PRN Reason Start Time Stop Time Status Last Admin Dose Admin Sodium Chloride (NS) 1,000 ml @ 1,000 mls/hr Q1H STAT IV 04/25/16 03:09 04/25/16 04:08 DC 04/25/16 03:46 Metoprolol Tartrate (Lopressor) 5 mg ONCE STAT IV 04/25/16 03:09 04/25/16 03:11 DC 04/25/16 03:51 Lorazepam (Ativan) 1 mg ONCE ONCE IV 04/25/16 03:30 04/25/16 03:31 DC 04/25/16 03:51 Procedures/MDM EKG: Rate/Rhythm: 144 sinus QRS, ST, T-waves: [No changes consistent w/ acute ischemia] Impression: SVT Chest X-ray 1V Interpreted by me: Soft Tissue: No acute abnormalities Bones: No acute abnormalities Mediastinum/Cardiac Silhouette/Lungs: [No acute abnormalities] Medical decision-makin-year-old female with SVT. Patient responded well to Lopressor along with Ativan as the patient is an anxiety seems to trigger SVT. At this point clinically stable for outpatient management. Departure Diagnosis: Primary Impression: SVT (supraventricular tachycardia) Condition: Stable DARÍO TEIXEIRA Apr 25, 2016 05:23
[2016-04-25] MEDS ORDERED: METO50TA16 PO (05:27)
[2016-04-25 05:48] VITALS: BP 117/79; PULSE 69; RESP 20; TEMP 97.8
== END 2016-04-25 05:48 | disposition home or self-care (01) ==
LOC: E/R 03:08
DX: I47.1 Supraventricular tachycardia (principal); I10 Essential (primary) hypertension; R07.9 Chest pain, unspecified
CPT/HCPCS: 71010; 80048; 84484; 85025; 85610; 85730; J2060; J7030; Z7610; 36415; 93005; 96374; 96375

== ENCOUNTER 2016-04-29 13:28 | Emergency (ER) | payer OTHER ==
[~2016-04-29] VITALS: Wt 80.0 kg
[~2016-04-29 13:28] MED LIST changes: -ALPR0.25 PO; -BUS5 PO; -CIPR500T4 PO; -FLUT9.9S NASAL; -METO-448 PO; +METO50TA16 PO; -NITR-58 PO; -ONDA4TAB35 PO; -SODI30SP2 NS
--- NOTE | 2016-04-29 16:05 | RADRPT ---
PROCEDURE: XR Chest 1 View. CLINICAL INDICATION: The shortness of breath TECHNIQUE: AP view of the chest were obtained. COMPARISON: April 25, 2016 FINDINGS: The cardiomediastinal silhouette is within normal limits. Elevation right hemidiaphragm appears photo mask cleaner kalpana. No consolidations are identified. No pneumothorax is seen. Lungs are mildly hyperexpanded. Oss eous structures are intact. IMPRESSION: Chronic mild elevation right hemidiaphragm. Hyperexpanded, clear lungs. RPTAT: AA .Abel Leavitt MD, MD Date Time Electronically viewed and signed by .Abel Leavitt MD, on 04/29/2016 16:04 .P/
--- NOTE | 2016-04-29 16:22 | RADRPT ---
PROCEDURE: X-ray soft tissue neck CLINICAL INDICATION: The patient "feels something in throat". TECHNIQUE: AP and lateral x-ray of the soft tissues of the neck are available for review. COMPARISON: None available FINDINGS: The epiglottis is unremarkable. The visualized airway is grossly patent. No significant airway compr omise is seen. No radiopaque foreign body is identified. No other abnormality is seen. The osseous structures are unremarkable. IMPRESSION: 1. Unremarkable soft tissue neck x-ray series. RPTAT: AA .Jaclyn Farah MD, MD Date Time Electronically viewed and signed by .Jaclyn Farah MD, on 04/29/2016 16:22 .N/
[2016-04-29] MEDS ORDERED: clonAZEPAM 0.5 MG TAB PO ONE (17:00)
[2016-04-29] MEDS ORDERED: FAMO-18 PO (17:21)
[2016-04-29] MEDS ORDERED: CLON-429 PO (17:27)
--- NOTE | 2016-04-29 17:39 | ERD ---
ER Documentation Chief Complaint Date/Time DATE: 04/29/16 TIME: 17:34 Chief Complaint CHRONIC ANXIETY/SOB HPI This is a 25-year-old female with a past medical history of anxiety that presents to the ER with shortness of breath. Patient states that her shortness of breath began on Saturday. Patient was admitted to the hospital from Saturday through Saturday and diagnosed with SVT. She is currently taking Lopressor and Cardizem. Patient denies any chest pain at this time. She is however stating that her heart rate keeps on going up and down. None of her symptoms are exertional. Patient states that she cannot take a deep breath in. She feels as if there is something in her throat. Patient has been to the ER almost every day over the last month. She is being followed by a metal fabricator welder. Patient did complain of acid reflux. ROS All systems reviewed and are negative except as per history of present illness. Medications Home Meds Active Scripts Clonazepam* (Klonopin*) 0.5 Mg Tab, 0.25 MG PO BID for 7 Days, TAB Prov:DOROTEO BELL 04/29/16 Famotidine* (Pepcid*) 20 Mg Tablet, 20 MG PO BID for 7 Days, TAB Prov:DOROTEO BELL 04/29/16 Metoprolol Succinate* (Toprol XL*) 50 Mg Tab.er.24h, 50 MG PO DAILY, #20 TAB Prov:DARÍO TEIXEIRA 04/25/16 Flecainide Acetate* (Flecainide Acetate*) 50 Mg Tablet, 50 MG PO BID for 60 Days , TAB Prov:Terrance Heath DO 04/23/16 Diltiazem Hcl* (Cardizem CD*) 120 Mg Cap.sr.24h, 120 MG PO DAILY for 30 Days Prov:Terrance Heath DO 04/23/16 Reported Medications Lorazepam* (Lorazepam*) 1 Mg Tablet, 1 MG PO Q4 Y for ANXIETY, #60 TAB 04/21/16 Discontinued Scripts Metoprolol Tartrate* (Lopressor*) 25 Mg Tab, 25 MG PO BID, #60 TAB Prov:LIVIA GLASER MD 04/23/16 Allergies Allergies: Coded Allergies: Penicillins (Verified Allergy, Mild, RASH, 04/21/16) codeine (Verified Allergy, Mild, RASH, 04/21/16) nitrofurantoin (Verified Allergy, Unknown, 04/21/16) Uncoded Allergies: GI COCKTAIL (Allergy, Unknown, hives, 01/05/15) PMhx/Soc History of Surgery: Yes (CHOLECYSTECTOMY 2014) Anesthesia Reaction: No Hx Neurological Disorder: No Hx Respiratory Disorders: No Hx Cardiac Disorders: Yes (HTN, SVT) Hx Psychiatric Problems: No Hx Miscellaneous Medical Probl: Yes (ANXIETY) Hx Alcohol Use: Yes (OCCASIONAL) Hx Substance Use: No Hx Tobacco Use: No Smoking Status: Never smoker Physical Exam Vitals Vital Signs Date Time Temp Pulse Resp B/P Pulse Ox O2 Delivery O2 Flow Rate FiO2 04/29/16 13:30 98.0 113 18 165/96 99 Physical Exam GENERAL: The patient is well developed and appropriate for usual state of health , in no apparent distress. HEENT: Atraumatic. Conjunctivae are pink. Pupils equal, round, and reactive to light. Extraocular muscles are grossly intact. Bilateral tympanic membranes are clear with no evidence of erythema, effusion or dulling of the light reflex. The oropharynx is clear with no erythema or exudates. NECK: C-spine is soft and supple. There is no cervical lymphadenopathy. CHEST: Clear to auscultation bilaterally. There are no rales, wheezes or rhonchi. HEART: Regular rate and rhythm. No murmurs, clicks, rubs or gallops. ABDOMEN: Soft, nontender and nondistended. Good bowel sounds. No rebound or guarding. No gross peritonitis. No gross organomegaly or masses. No Christopher sign or McBurney point tenderness. No pulsatile masses. BACK: No midline or flank tenderness. EXTREMITIES: Equal pulses bilaterally. There is no peripheral clubbing, cyanosis or edema. No focal swelling or erythema. Full range of motion. Grossly neurovascularly intact. NEURO: Alert and oriented. Cranial nerves II through XII are intact. Motor strength in all 4 extremities with 5/5 strength. Sensation grossly intact. Normal speech and gait. SKIN: There is no apparent rash or petechia. The skin is warm and dry. Results 24 hrs Current Medications Medications (Trade) Dose Ordered Sig/Samantha Route PRN Reason Start Time Stop Time Status Last Admin Dose Admin Clonazepam (Klonopin) 1 mg ONCE ONCE PO 04/29/16 17:00 04/29/16 17:01 DC 04/29/16 17:20 Procedures/MDM I reviewed patient's past medical records and patient had an extensive workup last weekend. pulmonary embolism, pheochromocytoma,, thyroid problems were all ruled out. Differential diagnosis includes but is not limited to; STEMI, dissection, pneumothorax, PE, esophageal rupture, tamponade, pneumonia, pericarditis, GERD, musculoskeletal, endocarditis, anxiety. This is likely anxiety. I spoke to patient's metal fabricator welder over the phone, he stated that patient has been to the ER multiple times in the last month and he feels that this may have a strong psychiatric component. EKG was taken [address] elevation or T-wave inversions it was read by Dr. Dhillon. Patient was sent home with famotidine. Patient shortness of breath may be attributed to acid reflux. Patient will also be sent home with clonazepam. Patient is to follow-up with their primary care doctor within 1-2 days or return to ER sooner if symptoms worsen. And medical decision making sure with the patient she understands and agrees with plan. Departure Diagnosis: Primary Impression: Anxiety Condition: Stable Patient Instructions: Anxiety Reaction Referrals: JOHN OLIVERA (PCP) Additional Instructions: Call your primary care doctor TOMORROW for an appointment during the next 1-2 days.See the doctor sooner or return here if your condition worsens before your appointment time. DOROTEO BELL Apr 29, 2016 17:39
[2016-04-29 17:57] VITALS: BP 139/83; PULSE 112; RESP 18; TEMP 98
== END 2016-04-29 17:57 | disposition home or self-care (01) ==
LOC: FTE 13:28
DX: F41.9 Anxiety disorder, unspecified (principal); I10 Essential (primary) hypertension
CPT/HCPCS: 70360; 71010; 93005; Z7502; Z7610

== ENCOUNTER 2016-07-05 19:40 | Emergency (ER) | payer OTHER ==
[~2016-07-05] VITALS: Ht 160 cm; Wt 103.0 kg
[~2016-07-05 19:40] MED LIST changes: +CLON-429 PO; +FAMO-18 PO
[2016-07-05 19:42] VITALS: Ht 160 cm; Wt 103.0 kg
[2016-07-05 22:20] LABS: URINE BLOOD (Dip) POC Trace-intact (NEGATIVE)
--- NOTE | 2016-07-05 23:23 | ERD ---
ER Documentation Chief Complaint Date/Time DATE: 07/05/16 TIME: 23:07 Chief Complaint bilateral ear pain x 3 days, dizziness x 1 day HPI 26-year-old female patient with with a past medical history of SVT, anxiety, hypertension presents to the ED complaining of dizziness associated with her tonsillitis. Denies any fever, chills, headache, abdominal pain, nausea, vomiting, diarrhea, numbness or tingling, chest pain, shortness of breath, dyspnea on exertion. Patient reports that she was here yesterday and was seen under the name of Paulina Clements and was diagnosed with tonsillitis. States that she has been taking the clindamycin with relief. States that she takes diltiazem. Denies any head trauma. Denies any seizures. ROS All systems reviewed and are negative except as per history of present illness. Medications Home Meds Active Scripts Clonazepam* (Klonopin*) 0.5 Mg Tab, 0.25 MG PO BID for 7 Days, TAB Prov:DOROTEO BELL 04/29/16 Famotidine* (Pepcid*) 20 Mg Tablet, 20 MG PO BID for 7 Days, TAB Prov:DOROTEO BELL 04/29/16 Metoprolol Succinate* (Toprol XL*) 50 Mg Tab.er.24h, 50 MG PO DAILY, #20 TAB Prov:DARÍO TEIXEIRA 04/25/16 Flecainide Acetate* (Flecainide Acetate*) 50 Mg Tablet, 50 MG PO BID for 60 Days , TAB Prov:Terrance Heath DO 04/23/16 Diltiazem Hcl* (Cardizem CD*) 120 Mg Cap.sr.24h, 120 MG PO DAILY for 30 Days Prov:Terrance Heath DO 04/23/16 Reported Medications Lorazepam* (Lorazepam*) 1 Mg Tablet, 1 MG PO Q4 Y for ANXIETY, #60 TAB 04/21/16 Allergies Allergies: Coded Allergies: Penicillins (Verified Allergy, Mild, RASH, 04/21/16) codeine (Verified Allergy, Mild, RASH, 04/21/16) nitrofurantoin (Verified Allergy, Unknown, 04/21/16) Uncoded Allergies: GI COCKTAIL (Allergy, Unknown, hives, 01/05/15) PMhx/Soc History of Surgery: Yes (CHOLECYSTECTOMY 2015) Anesthesia Reaction: No Hx Neurological Disorder: No Hx Respiratory Disorders: No Hx Cardiac Disorders: Yes (HTN, SVT) Hx Psychiatric Problems: No Hx Miscellaneous Medical Probl: Yes (ANXIETY) Hx Alcohol Use: Yes (OCCASIONAL) Hx Substance Use: No Hx Tobacco Use: No Smoking Status: Never smoker Physical Exam Vitals Vital Signs Date Time Temp Pulse Resp B/P Pulse Ox O2 Delivery O2 Flow Rate FiO2 07/05/16 19:42 98.3 95 17 137/88 97 Physical Exam Const: [id number], well-nourished. In no acute distress. Head: Atraumatic, normocephalic Eyes: Normal Conjunctiva without injection. No purulent discharge. PERRL. EOMI ENT: Normal external ear. Ear canal without erythema. Tympanic membrane pearly tubbs without effusion or bulging. Nasal canal clear with normal turbinates. Moist oropharynx without tonsillar exudates. Non-erythematous pharynx. Uvula midline. No drooling. No trismus. Neck: Full range of motion. No meningismus. No cervical lymphadenopathy. Resp: Clear to auscultation bilaterally. No wheezing, rhonchi, rales, or crackles. No accessory muscle use. No retractions. Cardio: Regular rate and rhythm. No murmurs, rubs or gallops. Abd: Soft, non tender, non distended. Normal bowel sounds. No palpable masses. No rebound tenderness. No guarding. Skin: No petechiae or rashes Back: No midline tenderness. No CVA tenderness. Ext: No cyanosis, or edema. Neur: Awake and alert. Psych: Normal Mood and Affect Results 24 hrs Laboratory Tests Test 07/05/16 22:11 07/05/16 22:20 Bedside Glucose 90mg/dL Bedside Urine pH (LAB) 5.5 Bedside Urine Protein (LAB) Negative Bedside Urine Glucose (UA) Negative Bedside Urine Ketones (LAB) Negative Bedside Urine Blood Trace-intact Bedside Urine Nitrite (LAB) Negative Bedside Urine Leukocyte Esterase (L Trace Procedures/MDM 26-year-old female patient with no significant past medical history presents to the ED complaining of dizziness that started yesterday. Patient was seen under the name of Paulina Kennedy yesterday therefore patient's documentation is not shown on this chart. Patient was seen 1 week ago at [facility] for the same symptoms. An EKG, Accu-Chek, urine and urine dip was ordered to further evaluate patient. Negative urine . Urine dip showed trace leukocyte esterase and trace hematuria. Patient denied any dysuria , gross hematuria, urgency, frequency. There is low suspicion for pyelonephritis, UTI. Accu-Chek was 90. Low suspicion for DKA. No ketones noted in urine. Patient was diagnosed with tonsillitis yesterday based on the tonsillar exudates noted on her bilateral tonsils with hypertrophy. Patient's dizziness could likely be secondary to infection. EKG reviewed and interpreted by Dr. Arreguin Rate/Rhythm: [76 bpm, Normal Sinus Rhythm with normal respiration variation] No ectopy, no ST elevations, normal axis. QRS, ST, T-waves: [No changes consistent w/ acute ischemia] Impression: [No evidence of ischemia or arrhythmia] Low suspicion for SVT, Brugada syndrome, WPW, acute myocardial infarction, pneumothorax, pneumonia, cardiac tamponade, pulmonary embolism, AAA, aortic dissection, Boerhaave's syndrome, cardiac dysrhythmias,meningitis, intracranial bleed, seizure, stroke, TIA or other emergent conditions. Discharge medications: Instructed patient strictly to complete the course of clindamycin that was prescribed yesterday Follow up with primary care physician in 1-2 days. Instructed patient to return to the ED sooner for any worsening symptoms. Patient's questions were answered. Patient understood and agreed with discharge plan. Patient discharged stable. Departure Diagnosis: Primary Impression: Follow-up examination Condition: Stable Patient Instructions: Your Body's Response to Anxiety, Possible Causes of Dizziness or Fainting, Pharyngitis, Strep (Presumed) Referrals: [facility] YOU HAVE RECEIVED A MEDICAL SCREENING EXAM AND THE RESULTS INDICATE THAT YOU DO NOT HAVE A CONDITION THAT REQUIRES URGENT TREATMENT IN THE EMERGENCY DEPARTMENT. FURTHER EVALUATION AND TREATMENT OF YOUR CONDITION CAN WAIT UNTIL YOU ARE SEEN IN YOUR DOCTORS OFFICE WITHIN THE NEXT 1-2 DAYS. IT IS YOUR RESPONSIBILITY TO MAKE AN APPOINTMENT FOR FOLOW-UP CARE. IF YOU HAVE A PRIMARY DOCTOR --you should call your primary doctor and schedule an appointment IF YOU DO NOT HAVE A PRIMARY DOCTOR YOU CAN CALL OUR PHYSICIAN REFERRAL HOTLINE AT IF YOU CAN NOT AFFORD TO SEE A PHYSICIAN YOU CAN CHOSE FROM THE FOLLOWING [facility] CLINICS [facility] [address] [place] [facility] [address] [facility] [address] [facility] [address] [facility] [address] [facility]. [facility]. [address] [facility]. [facility] YOU HAVE RECEIVED A MEDICAL SCREENING EXAM AND THE RESULTS INDICATE THAT YOU DO NOT HAVE A CONDITION THAT REQUIRES URGENT TREATMENT IN THE EMERGENCY DEPARTMENT. FURTHER EVALUATION AND TREATMENT OF YOUR CONDITION CAN WAIT UNTIL YOU ARE SEEN IN YOUR DOCTORS OFFICE WITHIN THE NEXT 1-2 DAYS. IT IS YOUR RESPONSIBILITY TO MAKE AN APPOINTMENT FOR FOLOW-UP CARE. IF YOU HAVE A PRIMARY DOCTOR --you should call your primary doctor and schedule and appointment IF YOU DO NOT HAVE A PRIMARY DOCTOR YOU CAN CALL OUR PHYSICIAN REFERRAL HOTLINE AT . IF YOU CAN NOT AFFORD TO SEE A PHYSICIAN YOU CAN CHOSE FROM THE FOLLOWING [facility] INSTITUTIONS: [facility] [address] [place] [address] [facility] [address] [place] [address] [facility] [address] [place] [address] [facility] URGENT C[facility]/SPECIALTIES Additional Instructions: Continue and completeyour antibiotics, Clindamycin prescribed yesterday. Call your primary care doctor TOMORROW for an appointment during the next 2-3 days. See the doctor sooner or return here if your condition worsens before your appointment time. ROSI CHOUDHURY PA-C Jul 05, 2016 23:17
== END 2016-07-05 23:16 | disposition home or self-care (01) ==
LOC: E/R 19:40 → FTE 23:16
DX: Z09 Encounter for follow-up examination after completed treatment for conditions other than malignant neoplasm (principal); I10 Essential (primary) hypertension; R42 Dizziness and giddiness; J03.90 Acute tonsillitis, unspecified
CPT/HCPCS: 81003; 82962; 93005

== ENCOUNTER 2016-09-24 09:51 | Emergency (ER) | payer OTHER ==
[~2016-09-24] VITALS: Ht 160 cm; Wt 100.5 kg
[~2016-09-24 09:51] MED LIST changes: +CARSR60 PO; +CIPR500T4 PO; +CLIN-73 PO; -FAMO-18 PO; +FAMO-96 PO; +LORA-444 PO; +NAPR-260 PO; +OMEP20CA16 PO; +OMEP40CA6 PO; +SULF1TAB31 PO; +TRAM50TA2 PO
[2016-09-24 09:59] VITALS: Ht 160 cm; Wt 100.5 kg
[2016-09-24 11:32] LABS: ADD SCAN DIFF NO
[2016-09-24 11:34] LABS: BASOPHILS % 0.4 % (0.0-2.0); EOSINOPHILS # 0.1 10^3/ul (0.0-0.5); EOSINOPHILS % 1.1 % (0.0-7.0); HEMATOCRIT 41.8 % (37.0-47.0); HEMOGLOBIN 14.2 g/dl (12.0-16.0); LYMPHOCYTES # 1.2 10^3/ul (0.8-2.9); LYMPHOCYTES % 12.9 % (15.0-51.0); MEAN CORPUSCULAR HEMOGLOBIN 28.2 pg (29.0-33.0); MEAN CORPUSCULAR VOLUME 82.9 fl (82.0-101.0); MEAN PLATELET VOLUME 10.6 fl (7.4-10.4); MONOCYTE # 0.4 10^3/ul (0.3-0.9); MONOCYTES % 4.7 % (0.0-11.0); NEUTROPHIL # 7.3 10^3/ul (1.6-7.5); NEUTROPHILS % 80.7 % (39.0-77.0); PLATELET COUNT 337 10^3/UL (140-415); RED BLOOD COUNT 5.04 10^6/ul (4.20-5.40); RED CELL DISTRIBUTION WIDTH 12.5 % (11.5-14.5); WHITE BLOOD COUNT 9.1 10^3/ul (4.8-10.8)
--- NOTE | 2016-09-24 11:52 | RADRPT ---
PROCEDURE: XR Chest. CLINICAL INDICATION: chest pain TECHNIQUE: Single frontal view of the chest was obtained COMPARISON: 04/29/2016 FINDINGS: The heart and mediastinum are within normal limits. The lungs are clear. There is no pleural effusion or pneumothorax. RPTAT: AA IMPRESSION: No acute disease. .Leonardo Irwin MD, MD Date Time Electronically viewed and signed by .Leonardo Irwin MD, MD on 09/24/2016 11:52 .S/
[2016-09-24 11:55] LABS: ANION GAP 10 (8-16); BLOOD UREA NITROGEN 8 mg/dl (7-20); CALCIUM 9.3 mg/dl (8.4-10.2); CARBON DIOXIDE 22 mmol/L (21-31); CHLORIDE 106 mmol/L (97-110); CREATININE 0.61 mg/dl (0.44-1.00); GLUCOSE 111 mg/dl (70-220); SODIUM 134 mmol/L (135-144)
[2016-09-24 12:09] LABS: TROPONIN-I < 0.012 ng/ml (0.00-0.12)
[2016-09-24 12:22] LABS: INR 1.01; PARTIAL THROMBOPLASTIN TIME 26.3 Sec (25.0-35.0); PROTIME 13.3 Sec (12.2-14.2)
[2016-09-24 12:31] LABS: D-DIMER 271.22 ng/ml (<460)
--- NOTE | 2016-09-24 16:30 | ERD ---
ER Documentation Chief Complaint Date/Time DATE: 09/24/16 TIME: 16:25 Chief Complaint Pt with intermittent CP radiating to B arms X 4 days HPI This is a 26-year-old female that presents to the ER with intermittent chest pain that is pressure-like in quality which radiates to bilateral hands for the last 4 days. Patient has been to the ER multiple times for multiple complaints and does have a past medical history of SVT and anxiety. Patient is currently seeing a press operator [employer] print shop and handyperson. Patient denies any shortness of breath. Chest pain is nonexertional. She denies any diaphoresis. Patient has not traveled anywhere recently. She denies any leg pain or leg swelling. Patient was taking control and stopped taking it 2 weeks ago. Patient tried taking her Ativan however stated that it did not help and she is extremely worried about having a clot. ROS 12 point review of systems was done, all negative except per HPI. Medications Home Meds Active Scripts Clonazepam* (Klonopin*) 0.5 Mg Tab, 0.25 MG PO BID for 7 Days, TAB Prov:DOROTEO BELL 04/29/16 Famotidine* (Pepcid*) 20 Mg Tablet, 20 MG PO BID for 7 Days, TAB Prov:DOROTEO BELL 04/29/16 Metoprolol Succinate* (Toprol XL*) 50 Mg Tab.er.24h, 50 MG PO DAILY, #20 TAB Prov:DARÍO TEIXEIRA 04/25/16 Flecainide Acetate* (Flecainide Acetate*) 50 Mg Tablet, 50 MG PO BID for 60 Days , TAB Prov:Terrance Heath DO 04/23/16 Diltiazem Hcl* (Cardizem CD*) 120 Mg Cap.sr.24h, 120 MG PO DAILY for 30 Days Prov:Terrance Heath DO 04/23/16 Reported Medications Lorazepam* (Lorazepam*) 1 Mg Tablet, 1 MG PO Q4 Y for ANXIETY, #60 TAB 04/21/16 Allergies Allergies: Coded Allergies: Penicillins (Verified Allergy, Mild, RASH, 09/24/16) codeine (Verified Allergy, Mild, RASH, 09/24/16) nitrofurantoin (Verified Allergy, Unknown, 09/24/16) Uncoded Allergies: GI COCKTAIL (Allergy, Unknown, hives, 01/05/15) PMhx/Soc History of Surgery: Yes (CHOLECYSTECTOMY 2015) Anesthesia Reaction: No Hx Neurological Disorder: No Hx Respiratory Disorders: No Hx Cardiac Disorders: Yes (HTN, SVT) Hx Psychiatric Problems: No Hx Miscellaneous Medical Probl: Yes (ANXIETY) Hx Alcohol Use: Yes (OCCASIONAL) Hx Substance Use: No Hx Tobacco Use: No Smoking Status: Never smoker Physical Exam Vitals Vital Signs Date Time Temp Pulse Resp B/P Pulse Ox O2 Delivery O2 Flow Rate FiO2 09/24/16 09:59 99.5 130 18 140/96 98 Physical Exam GENERAL: The patient is well developed and appropriate for usual state of health , in no apparent distress. HEENT: Atraumatic. Conjunctivae are pink. Pupils equal, round, and reactive to light. Extraocular muscles are grossly intact. Bilateral tympanic membranes are clear with no evidence of erythema, effusion or dulling of the light reflex. The oropharynx is clear with no erythema or exudates. NECK: C-spine is soft and supple. There is no cervical lymphadenopathy. CHEST: Clear to auscultation bilaterally. There are no rales, wheezes or rhonchi. HEART: Regular rate and rhythm. No murmurs, clicks, rubs or gallops. ABDOMEN: Soft, nontender and nondistended. Good bowel sounds. No rebound or guarding. No gross peritonitis. No gross organomegaly or masses. No Christopher sign or McBurney point tenderness. No pulsatile masses. BACK: No midline or flank tenderness. EXTREMITIES: Equal pulses bilaterally. There is no peripheral clubbing, cyanosis or edema. No focal swelling or erythema. Full range of motion. Grossly neurovascularly intact. NEURO: Alert and oriented. Cranial nerves II through XII are intact. Motor strength in all 4 extremities with 5/5 strength. Sensation grossly intact. Normal speech and gait. SKIN: There is no apparent rash or petechia. The skin is warm and dry. Result Diagram: 09/24/16 1125 09/24/16 1125 Results 24 hrs Laboratory Tests Test 09/24/16 11:25 White Blood Count 9.110^3/ul Red Blood Count 5.0410^6/ul Hemoglobin 14.2g/dl Hematocrit 41.8% Mean Corpuscular Volume 82.9fl Mean Corpuscular Hemoglobin 28.2pg Mean Corpuscular Hemoglobin Concent 34.0g/dl Red Cell Distribution Width 12.5% Platelet Count 25006^3/UL Mean Platelet Volume 10.6fl Neutrophils % 80.7% Lymphocytes % 12.9% Monocytes % 4.7% Eosinophils % 1.1% Basophils % 0.4% Nucleated Red Blood Cells % 0.0/100WBC Neutrophils # 7.310^3/ul Lymphocytes # 1.210^3/ul Monocytes # 0.410^3/ul Eosinophils # 0.110^3/ul Basophils # 0.010^3/ul Nucleated Red Blood Cells # 0.010^3/ul Prothrombin Time 13.3Sec Prothrombin Time Ratio 1.0 INR International Normalized Ratio 1.01 Activated Partial Thromboplast Time 26.3Sec D-Dimer 271.22ng/ml D-Dimer Comment Sodium Level 134mmol/L Potassium Level 4.0mmol/L Chloride Level 106mmol/L Carbon Dioxide Level 22mmol/L Anion Gap 10 Blood Urea Nitrogen 8mg/dl Creatinine 0.61mg/dl Glucose Level 111mg/dl Calcium Level 9.3mg/dl Troponin I < 0.012ng/ml Procedures/MDM Differential diagnosis includes but is not limited to; STEMI, dissection, pneumothorax, PE, esophageal rupture, tamponade, pneumonia, pericarditis, GERD, musculoskeletal, endocarditis, anxiety. Patient's chest pain is likely not cardiac in etiology. EKG was taken 119 bpm; sinus tachycardia no ST elevation no T-wave inversion. Troponin was negative for this patient and so was d- dimer. At this time suspicion for acute myocardial infarction is low, suspicion for pulmonary embolism is low. Patient has an extensive history of anxiety and chest pain and she has been worked up in the ER multiple times patient. Patient is to continue with her regular medications and follow-up with her press operator [employer] shop as soon as possible. Her medical decision making was shared with the patient she understands and agrees with plan. Departure Diagnosis: Primary Impression: Chest pain Condition: Stable Patient Instructions: Chest Pain, Uncertain Cause Referrals: JOHN OLIVERA (PCP) Additional Instructions: Call your primary care doctor TOMORROW for an appointment during the next 1-2 days.See the doctor sooner or return here if your condition worsens before your appointment time. DOROTEO BELL Sep 24, 2016 16:29
== END 2016-09-24 13:10 | disposition home or self-care (01) ==
LOC: FTE 09:51
DX: R07.89 Other chest pain (principal); I10 Essential (primary) hypertension
CPT/HCPCS: 36415; 71010; 80048; 84484; 85025; 85378; 85610; 85730; 93005; Z7502

== ENCOUNTER 2016-10-24 10:38 | Emergency (ER) | payer OTHER ==
[~2016-10-24] VITALS: Ht 160 cm; Wt 102.5 kg
[2016-10-24 10:40] VITALS: Ht 160 cm; Wt 102.5 kg
[2016-10-24] MEDS ORDERED: SOD CHLORIDE 0.9% 1,000 ML IV STA (11:22)
[2016-10-24 11:53] LABS: BASOPHILS % 0.5 % (0.0-2.0); EOSINOPHILS # 0.1 10^3/ul (0.0-0.5); EOSINOPHILS % 1.2 % (0.0-7.0); HEMATOCRIT 41.4 % (37.0-47.0); HEMOGLOBIN 13.6 g/dl (12.0-16.0); LYMPHOCYTES # 1.5 10^3/ul (0.8-2.9); MEAN CORPUSCULAR HEMOGLOBIN 27.8 pg (29.0-33.0); MEAN CORPUSCULAR HGB CONC 32.9 g/dl (32.0-37.0); MEAN CORPUSCULAR VOLUME 84.7 fl (82.0-101.0); MEAN PLATELET VOLUME 10.5 fl (7.4-10.4); MONOCYTE # 0.5 10^3/ul (0.3-0.9); MONOCYTES % 5.6 % (0.0-11.0); NEUTROPHIL # 6.4 10^3/ul (1.6-7.5); NEUTROPHILS % 74.5 % (39.0-77.0); PLATELET COUNT 309 10^3/UL (140-415); RED BLOOD COUNT 4.89 10^6/ul (4.20-5.40); RED CELL DISTRIBUTION WIDTH 12.7 % (11.5-14.5); WHITE BLOOD COUNT 8.5 10^3/ul (4.8-10.8)
[2016-10-24 11:56] LABS: ADD UMIC NO; UR ASCORBIC ACID NEGATIVE (NEGATIVE); UR BILIRUBIN (Dip) NEGATIVE (NEGATIVE); UR BLOOD (Dip) NEGATIVE (NEGATIVE); UR CLARITY CLEAR (CLEAR); UR COLOR COLORLESS (YELLOW); UR GLUCOSE (Dip) NEGATIVE (NEGATIVE); UR KETONES (Dip) NEGATIVE (NEGATIVE); UR LEUKOCYTE ESTERASE (Dip) NEGATIVE Leu/ul (NEGATIVE); UR NITRITE (Dip) NEGATIVE (NEGATIVE); UR SPECIFIC GRAVITY (Dip) 1.003 (1.003-1.030); UR TOTAL PROTEIN (Dip) NEGATIVE (NEGATIVE); UR UROBILINOGEN (Dip) NEGATIVE (NEGATIVE)
--- NOTE | 2016-10-24 12:00 | RADRPT ---
PROCEDURE: Chest x-ray CLINICAL INDICATION: Abdominal pain TECHNIQUE: Chest single view COMPARISON: 09/24/2016 FINDINGS: The heart is normal in size. The pulmonary vessels are normal in caliber. The lungs are clear. Th e costophrenic angles are sharp. The visualized bony thorax is unremarkable. IMPRESSION: No acute cardiopulmonary disease. RPTAT: HH .Wagner Del Rosario MD, Date Time Electronically viewed and signed by .Wagner Del Rosario MD, on 10/24/2016 11:59 .W/
[2016-10-24 12:12] LABS: ALBUMIN 4.5 g/dl (3.3-4.9); ALBUMIN/GLOBULIN RATIO 1.32; BILIRUBIN,INDIRECT 0.3 mg/dl (0-1.1); BILIRUBIN,TOTAL 0.3 mg/dl (0.2-1.3); CALCIUM 9.4 mg/dl (8.4-10.2); CREATININE 0.68 mg/dl (0.44-1.00); POTASSIUM 4.3 mmol/L (3.5-5.1); TOTAL PROTEIN 7.9 g/dl (6.1-8.1)
[2016-10-24] MEDS ORDERED: LORA1TAB54 PO (12:39)
[2016-10-24 13:04] VITALS: BP 126/77; PULSE 74; RESP 18; TEMP 98.2
--- NOTE | 2016-10-24 13:29 | ERD ---
ER Documentation Chief Complaint Date/Time DATE: 10/24/16 TIME: 13:23 Chief Complaint feels dizzy HPI After she was taking Cipro for UTI 1 month ago. She denies any fever. She has not had loss of consciousness. She has been drinking more fluids than normal. But feels that there is no alleviation. She has a history of SVT, hypertension , and anxiety. She takes diltiazem. She does not feel that she has had heart palpitations or episodes of SVT. Her last SVT episode was last month. She denies shortness of breath. Denies abdominal pain. Denies change in urination or bowel movements. Denies headaches. Denies confusion or difficulty walking. She states that she feels "just off." She states she has been experiencing nasal congestion and more allergy symptoms are normal. ROS All systems reviewed and are negative except as per history of present illness. Medications Home Meds Active Scripts Loratadine/Pseudoephedrine* (Claritin-D* 12 Hr) 5-120 Mg Tab.er.12h, 1 TAB PO Q12, #60 TAB.SA Prov:BHUPENDRA RILEY PA-C 10/24/16 Omeprazole* (Omeprazole*) 40 Mg Capsule., 40 MG PO QAM, #10 CAP Prov:ALISTAIR MEJIA NP 09/19/16 Tramadol HCl (Tramadol HCl) 50 Mg Tablet, 50 MG PO Q6 Y for SEVERE PAIN LEVEL 7- 10, #20 TAB Prov:HECTOR SALTER NP 09/16/16 Famotidine* (Pepcid*) 20 Mg Tablet, 20 MG PO BID for 4 Days, TAB Prov:ALISTAIR MEJIA NP 09/15/16 Ciprofloxacin Hcl* (Ciprofloxacin Hcl*) 500 Mg Tablet, 500 MG PO BID for 3 Days , TAB Prov:ALISTAIR MEJIA NP 09/15/16 Sulfamethoxazole/Trimethoprim* (Bactrim Ds* Tablet) 1 Each Tablet, 1 TAB PO BID for 3 Days, #14 TAB Prov:YOCASTA NAGEL PA-C 09/15/16 Omeprazole* (Omeprazole*) 20 Mg Capsule., 20 MG PO BID, #20 TAB Prov:ROSI CHOUDHURY PA-C 07/25/16 Naproxen* (Naprosyn*) 500 Mg Tablet, 500 MG PO BID Y for PAIN AND/OR INFLAMMATION, #30 TAB Prov:YOCASTA NAGEL PA-C 07/08/16 Clindamycin Hcl* (Clindamycin Hcl*) 300 Mg Capsule, 300 MG PO TID for 10 Days, # 30 CAP Prov:DARÍO GARCÍA PA-C 07/04/16 Clindamycin Hcl* (Clindamycin Hcl*) 300 Mg Capsule, 300 MG PO BID for 7 Days, # 14 CAP Prov:DARÍO GARCÍA PA-C 07/04/16 Clonazepam* (Klonopin*) 0.5 Mg Tab, 0.25 MG PO BID for 7 Days, TAB Prov:DOROTEO BELL 04/29/16 Famotidine* (Pepcid*) 20 Mg Tablet, 20 MG PO BID for 7 Days, TAB Prov:DOROTEO BELL 04/29/16 Metoprolol Succinate* (Toprol XL*) 50 Mg Tab.er.24h, 50 MG PO DAILY, #20 TAB Prov:DARÍO TEIXEIRA 04/25/16 Flecainide Acetate* (Flecainide Acetate*) 50 Mg Tablet, 50 MG PO BID for 60 Days , TAB Prov:Terrance Heath DO 04/23/16 Diltiazem Hcl* (Cardizem CD*) 120 Mg Cap.sr.24h, 120 MG PO DAILY for 30 Days Prov:Terrance Heath DO 04/23/16 Reported Medications Diltiazem Hcl* (Cardizem SR*) 60 Mg Capsr, 60 MG PO Q12, #60 CAP 06/21/16 Lorazepam* (Ativan*) 2 Mg Tablet, 1 MG PO Q8 Y for ANXIETY, #60 TAB 04/24/16 Lorazepam* (Lorazepam*) 1 Mg Tablet, 1 MG PO Q4 Y for ANXIETY, #60 TAB 04/21/16 Allergies Allergies: Coded Allergies: Penicillins (Verified Allergy, Mild, RASH, 09/24/16) codeine (Verified Allergy, Mild, RASH, 09/24/16) nitrofurantoin (Verified Allergy, Unknown, 09/24/16) Uncoded Allergies: GI COCKTAIL (Allergy, Unknown, hives, 10/21/15) PMhx/Soc History of Surgery: Yes (CHOLECYSTECTOMY 2015) Anesthesia Reaction: No Hx Neurological Disorder: No Hx Respiratory Disorders: No Hx Cardiac Disorders: Yes (HTN, SVT) Hx Psychiatric Problems: No Hx Miscellaneous Medical Probl: Yes (ANXIETY) Hx Alcohol Use: Yes (OCCASIONAL) Hx Substance Use: No Hx Tobacco Use: No Smoking Status: Never smoker Physical Exam Vitals Vital Signs Date Time Temp Pulse Resp B/P Pulse Ox O2 Delivery O2 Flow Rate FiO2 10/24/16 13:04 98.2 74 18 126/77 100 Room Air 10/24/16 10:40 98.4 105 18 122/74 99 Physical Exam ENT: Normal External Ears, Nose and Mouth. Small collection of cerumen and right external ear canal. No impaction Neck: Full range of motion..~ No meningismus. Resp: Clear to auscultation bilaterally Cardio: Regular rate and rhythm, no murmurs Abd: Soft, non tender, non distended. Normal bowel sounds Back: No midline or flank tenderness Psych: Normal Mood and Affect Result Diagram: 10/24/16 1130 10/24/16 1130 Results 24 hrs Laboratory Tests Test 10/24/16 11:05 10/24/16 11:30 Urine Color COLORLESS Urine Clarity CLEAR Urine pH 8.0 Urine Specific [place] 1.003 Urine Ketones NEGATIVEmg/dL Urine Nitrite NEGATIVEmg/dL Urine Bilirubin NEGATIVEmg/dL Urine Urobilinogen NEGATIVEmg/dL Urine Leukocyte Esterase NEGATIVELeu/ul Urine Hemoglobin NEGATIVEmg/dL Urine Glucose NEGATIVEmg/dL Urine Total Protein NEGATIVEmg/dl White Blood Count 8.510^3/ul Red Blood Count 4.8910^6/ul Hemoglobin 13.6g/dl Hematocrit 41.4% Mean Corpuscular Volume 84.7fl Mean Corpuscular Hemoglobin 27.8pg Mean Corpuscular Hemoglobin Concent 32.9g/dl Red Cell Distribution Width 12.7% Platelet Count 09589^3/UL Mean Platelet Volume 10.5fl Neutrophils % 74.5% Lymphocytes % 18.0% Monocytes % 5.6% Eosinophils % 1.2% Basophils % 0.5% Nucleated Red Blood Cells % 0.0/100WBC Neutrophils # 6.410^3/ul Lymphocytes # 1.510^3/ul Monocytes # 0.510^3/ul Eosinophils # 0.110^3/ul Basophils # 0.010^3/ul Nucleated Red Blood Cells # 0.010^3/ul Sodium Level 145mmol/L Potassium Level 4.3mmol/L Chloride Level 103mmol/L Carbon Dioxide Level 27mmol/L Anion Gap 19 Blood Urea Nitrogen 9mg/dl Creatinine 0.68mg/dl Glucose Level 87mg/dl Calcium Level 9.4mg/dl Total Bilirubin 0.3mg/dl Direct Bilirubin 0.00mg/dl Indirect Bilirubin 0.3mg/dl Aspartate Amino Transf (AST/SGOT) 20IU/L Alanine Aminotransferase (ALT/SGPT) 30IU/L Alkaline Phosphatase 58IU/L Total Protein 7.9g/dl Albumin 4.5g/dl Globulin 3.40g/dl Albumin/Globulin Ratio 1.32 Lipase 78U/L Current Medications Medications (Trade) Dose Ordered Sig/Samantha Route PRN Reason Start Time Stop Time Status Last Admin Dose Admin Sodium Chloride (NS) 1,000 ml @ 1,000 mls/hr Q1H STAT IV 10/24/16 11:22 10/24/16 12:21 DC 10/24/16 11:42 Procedures/MDM ER Course: EK BPM, Normal sinus rhythm. Normal axis. No STEMI. No arrhythmias. DIAGNOSTIC IMAGING REPORT Patient: PATRICIA OSWALD : 1990 Age: 26 Sex: F MR #: [id number] DOS: 10/24/16 1122 Ordering MD: ZAINAB RILEY PA-C Location: [facility] Room/Bed: PROCEDURE: Chest x-ray CLINICAL INDICATION: Abdominal pain TECHNIQUE: Chest single view COMPARISON: 09/24/2016 FINDINGS: The heart is normal in size. The pulmonary vessels are normal in caliber. The lungs are clear. The costophrenic angles are sharp. The visualized bony thorax is unremarkable. IMPRESSION: No acute cardiopulmonary disease. Fluids given in the ED. Urine test, negative MDM: 26-year-old female coming complaining of intermittent dizziness for the last month. I have low suspicion for intracranial hemorrhage or mass-effect. Patient's neuro exam is within normal limits. A low suspicion for neuro deficit as exam is within normal limits. I have low suspicion for cardiac abnormality. Patient's EKG is within normal limits. Patient exam is not concerning. A low suspicion for pulmonary abnormality as patient's chest x-ray is within normal limits and exam is not concerning. Patient's vital signs are stable. Patient does not have concerning abdominal exam. I will suspicion for abdominal abnormalities. A low suspicion for ectopic as patient's exam is negative. I have low suspicion for electrolyte abnormalities. Patient's blood work is within normal limits. I have low suspicion for DKA. Patient's glucose is within normal limits. I have low suspicion for anemia. Patient's hemoglobin is stable. Patient is recommended to follow-up with primary care doctor in 1-2 days. Patient was discharged with all results and given strict ER precautions. Patient will return to the ER if symptoms change or worsen. Departure Diagnosis: Primary Impression: Dizziness Condition: Stable Patient Instructions: Dizziness, Unk Cause Referrals: JOHN OLIVERA (PCP) Additional Instructions: FOLLOW UP WITH YOUR PRIMARY CARE PHYSICIAN TOMORROW.Return to this facility if you are not improving as expected. BHUPENDRA RILEY PA-C Oct 24, 2016 13:29
== END 2016-10-24 13:23 | disposition home or self-care (01) ==
LOC: FTE 10:38
DX: R42 Dizziness and giddiness (principal); I10 Essential (primary) hypertension
CPT/HCPCS: 71010; 80053; 81003; 83690; 85025; 93005; J7030; 36415

== ENCOUNTER 2016-10-31 07:27 | Emergency (ER) | payer OTHER ==
[~2016-10-31] VITALS: Ht 162.6 cm; Wt 102.0 kg
[~2016-10-31 07:27] MED LIST changes: +LORA1TAB54 PO
[2016-10-31 07:34] VITALS: Ht 162.6 cm; Wt 102.0 kg
[2016-10-31] MEDS ORDERED: GUAI600T14 PO (09:45)
[2016-10-31] MEDS ORDERED: FLUC150T17 PO (09:45)
--- NOTE | 2016-10-31 09:54 | ERD ---
ER Documentation Chief Complaint Date/Time DATE: 10/31/16 TIME: 09:52 Chief Complaint nasal congestion x 2 weeks HPI 26-year-old female reports some shortness of breath in the mornings when she wakes up. Also has nasal congestion and some sinus pressure. She has no shortness of breath currently. She is currently on clindamycin for a needle that she stepped on recently. Denies any chest pain. He has no history of asthma. ROS All systems reviewed and are negative except as per history of present illness. Medications Home Meds Active Scripts Fluconazole* (Diflucan*) 150 Mg Tablet, 150 MG PO ONCE, #1 TAB Prov:ANDERSON VEGA DO 10/31/16 Guaifenesin (Guaifenesin) 600 Mg Tablet.sa, 600 MG PO BID for congestion, #20 TAB Prov:ANDERSON VEGA DO 10/31/16 Loratadine/Pseudoephedrine* (Claritin-D* 12 Hr) 5-120 Mg Tab.er.12h, 1 TAB PO Q12, #60 TAB.SA Prov:BHUPENDRA RILEY PA-C 10/24/16 Omeprazole* (Omeprazole*) 40 Mg Capsule., 40 MG PO QAM, #10 CAP Prov:ALISTAIR MEJIA NP 09/19/16 Tramadol HCl (Tramadol HCl) 50 Mg Tablet, 50 MG PO Q6 Y for SEVERE PAIN LEVEL 7- 10, #20 TAB Prov:HECTOR SALTER NP 09/16/16 Famotidine* (Pepcid*) 20 Mg Tablet, 20 MG PO BID for 4 Days, TAB Prov:ALISTAIR MEJIA NP 09/15/16 Ciprofloxacin Hcl* (Ciprofloxacin Hcl*) 500 Mg Tablet, 500 MG PO BID for 3 Days , TAB Prov:ALISTAIR MEJIA NP 09/15/16 Sulfamethoxazole/Trimethoprim* (Bactrim Ds* Tablet) 1 Each Tablet, 1 TAB PO BID for 3 Days, #14 TAB Prov:YOCASTA NAGEL PA-C 09/15/16 Omeprazole* (Omeprazole*) 20 Mg Capsule., 20 MG PO BID, #20 TAB Prov:ROSI CHOUDHURY PA-C 07/25/16 Naproxen* (Naprosyn*) 500 Mg Tablet, 500 MG PO BID Y for PAIN AND/OR INFLAMMATION, #30 TAB Prov:YOCASTA NAGEL PA-C 07/08/16 Clindamycin Hcl* (Clindamycin Hcl*) 300 Mg Capsule, 300 MG PO TID for 10 Days, # 30 CAP Prov:DARÍO GARCÍA PA-C 07/04/16 Clindamycin Hcl* (Clindamycin Hcl*) 300 Mg Capsule, 300 MG PO BID for 7 Days, # 14 CAP Prov:DARÍO GARCÍA PA-C 07/04/16 Clonazepam* (Klonopin*) 0.5 Mg Tab, 0.25 MG PO BID for 7 Days, TAB Prov:DOROTEO BELL 04/29/16 Famotidine* (Pepcid*) 20 Mg Tablet, 20 MG PO BID for 7 Days, TAB Prov:RAYDOROTEO SANDOVAL C 04/29/16 Metoprolol Succinate* (Toprol XL*) 50 Mg Tab.er.24h, 50 MG PO DAILY, #20 TAB Prov:DARÍO TEIXEIRA 04/25/16 Flecainide Acetate* (Flecainide Acetate*) 50 Mg Tablet, 50 MG PO BID for 60 Days , TAB Prov:eTrrance Heath DO 04/23/16 Diltiazem Hcl* (Cardizem CD*) 120 Mg Cap.sr.24h, 120 MG PO DAILY for 30 Days Prov:Terrance Heath DO 04/23/16 Reported Medications Diltiazem Hcl* (Cardizem SR*) 60 Mg Capsr, 60 MG PO Q12, #60 CAP 06/21/16 Lorazepam* (Ativan*) 2 Mg Tablet, 1 MG PO Q8 Y for ANXIETY, #60 TAB 04/24/16 Lorazepam* (Lorazepam*) 1 Mg Tablet, 1 MG PO Q4 Y for ANXIETY, #60 TAB 04/21/16 Allergies Allergies: Coded Allergies: Penicillins (Verified Allergy, Mild, RASH, 09/24/16) codeine (Verified Allergy, Mild, RASH, 09/24/16) nitrofurantoin (Verified Allergy, Unknown, 09/24/16) Uncoded Allergies: GI COCKTAIL (Allergy, Unknown, hives, 01/05/15) PMhx/Soc History of Surgery: Yes (CHOLECYSTECTOMY 2014) Anesthesia Reaction: No Hx Neurological Disorder: No Hx Respiratory Disorders: No Hx Cardiac Disorders: Yes (HTN, SVT) Hx Psychiatric Problems: No Hx Miscellaneous Medical Probl: Yes (ANXIETY) Hx Alcohol Use: Yes (OCCASIONAL) Hx Substance Use: No Hx Tobacco Use: No Smoking Status: Never smoker Physical Exam Vitals Vital Signs Date Time Temp Pulse Resp B/P Pulse Ox O2 Delivery O2 Flow Rate FiO2 10/31/16 07:34 98.1 83 18 116/77 100 Physical Exam Const: [] No distress ENT: Normal External Ears, Nose and Mouth. Bilateral mild maxillary sinus tenderness Neck: Full range of motion..~ No meningismus. Resp: Clear to auscultation bilaterally Cardio: Regular rate and rhythm, no murmurs Skin: No petechiae or rashes Procedures/MDM Possible sinusitis. This does not warrant antibiotic treatment patient is already on an antibiotic that would cover for sinusitis. I am going to give her guaifenesin for sinusitis as well as a Diflucan tablet case she develops yeast infection while on clindamycin. I am going to encourage her to eat probiotics. Primary care follow-up in 2 3 days and return precautions also discussed with her the possibility of sleep apnea. Departure Diagnosis: Primary Impression: Sinusitis Condition: Stable Patient Instructions: Self-Care for Sinusitis Additional Instructions: Call your primary care doctor TOMORROW for an appointment during the next 2-3 days.See the doctor sooner or return here if your condition worsens before your appointment time. ANDERSON VEGA DO Oct 31, 2016 09:54
== END 2016-10-31 10:07 | disposition home or self-care (01) ==
LOC: FTE 07:27
DX: J32.9 Chronic sinusitis, unspecified (principal); I10 Essential (primary) hypertension
CPT/HCPCS: 99283

== ENCOUNTER 2016-11-02 10:48 | Emergency (ER) | payer OTHER ==
[~2016-11-02] VITALS: Wt 102.5 kg
[~2016-11-02 10:48] MED LIST changes: +FLUC150T17 PO; +GUAI600T14 PO
--- NOTE | 2016-11-02 12:24 | ERD ---
ER Documentation Chief Complaint Date/Time DATE: 11/02/16 TIME: 12:23 Chief Complaint BREAST PAIN, ONSET 3 DAYS, MILD SOB HPI This is a 26-year-old female who presents to the emergency department today complaining of intermittent chest pain and pain under her left breast and occasional shortness of breath. States she is also had intermittent bouts of dizziness that is been ongoing for the past few weeks. States she is taking multiple medications currently for an infection that she had, sinusitis and her usual medications for SVT. States that she did see her therapist yesterday and she is unsure if this is related to anxiety. States that she has also seen her primary care doctor and was told that she could be possibly having a stroke or heart attack and she does not feel that she is being heard by her primary care doctor. States she is in the process of changing this denies any fevers or chills, cough, recent travel. ROS All systems reviewed and are negative except as per history of present illness. Medications Home Meds Active Scripts Fluconazole* (Diflucan*) 150 Mg Tablet, 150 MG PO ONCE, #1 TAB Prov:ANDERSON VEGA DO 10/31/16 Guaifenesin (Guaifenesin) 600 Mg Tablet.sa, 600 MG PO BID for congestion, #20 TAB Prov:ANDERSON VEGA DO 10/31/16 Loratadine/Pseudoephedrine* (Claritin-D* 12 Hr) 5-120 Mg Tab.er.12h, 1 TAB PO Q12, #60 TAB.SA Prov:BHUPENDRA RILEY PA-C 10/24/16 Omeprazole* (Omeprazole*) 40 Mg Capsule., 40 MG PO QAM, #10 CAP Prov:ALISTAIR MEJIA NP 09/19/16 Tramadol HCl (Tramadol HCl) 50 Mg Tablet, 50 MG PO Q6 Y for SEVERE PAIN LEVEL 7- 10, #20 TAB Prov:HECTOR SALTER NP 09/16/16 Famotidine* (Pepcid*) 20 Mg Tablet, 20 MG PO BID for 4 Days, TAB Prov:ALISTAIR MEJIA NP 09/15/16 Ciprofloxacin Hcl* (Ciprofloxacin Hcl*) 500 Mg Tablet, 500 MG PO BID for 3 Days , TAB Prov:ALISTAIR MEJIA NP 09/15/16 Sulfamethoxazole/Trimethoprim* (Bactrim Ds* Tablet) 1 Each Tablet, 1 TAB PO BID for 3 Days, #14 TAB Prov:YOCASTA NAGEL PA-C 09/15/16 Omeprazole* (Omeprazole*) 20 Mg Capsule.dr, 20 MG PO BID, #20 TAB Prov:ROSI CHOUDHURYC 07/25/16 Naproxen* (Naprosyn*) 500 Mg Tablet, 500 MG PO BID Y for PAIN AND/OR INFLAMMATION, #30 TAB Prov:YOCASTA NAGEL PA-C 07/08/16 Clindamycin Hcl* (Clindamycin Hcl*) 300 Mg Capsule, 300 MG PO TID for 10 Days, # 30 CAP Prov:DARÍO GARCÍA PA-C 07/04/16 Clindamycin Hcl* (Clindamycin Hcl*) 300 Mg Capsule, 300 MG PO BID for 7 Days, # 14 CAP Prov:DARÍO GARCÍA PA-C 07/04/16 Clonazepam* (Klonopin*) 0.5 Mg Tab, 0.25 MG PO BID for 7 Days, TAB Prov:DOROTEO BELL 04/29/16 Famotidine* (Pepcid*) 20 Mg Tablet, 20 MG PO BID for 7 Days, TAB Prov:DOROTEO BELL 04/29/16 Metoprolol Succinate* (Toprol XL*) 50 Mg Tab.er.24h, 50 MG PO DAILY, #20 TAB Prov:DARÍO TEIXEIRA 04/25/16 Flecainide Acetate* (Flecainide Acetate*) 50 Mg Tablet, 50 MG PO BID for 60 Days , TAB Prov:Terrance Heath DO 04/23/16 Diltiazem Hcl* (Cardizem CD*) 120 Mg Cap.sr.24h, 120 MG PO DAILY for 30 Days Prov:Terrance Heath DO 04/23/16 Reported Medications Diltiazem Hcl* (Cardizem SR*) 60 Mg Capsr, 60 MG PO Q12, #60 CAP 06/21/16 Lorazepam* (Ativan*) 2 Mg Tablet, 1 MG PO Q8 Y for ANXIETY, #60 TAB 04/24/16 Lorazepam* (Lorazepam*) 1 Mg Tablet, 1 MG PO Q4 Y for ANXIETY, #60 TAB 04/21/16 Allergies Allergies: Coded Allergies: Penicillins (Verified Allergy, Mild, RASH, 09/24/16) codeine (Verified Allergy, Mild, RASH, 09/24/16) nitrofurantoin (Verified Allergy, Unknown, 09/24/16) Uncoded Allergies: GI COCKTAIL (Allergy, Unknown, hives, 01/05/15) PMhx/Soc History of Surgery: Yes (CHOLECYSTECTOMY 2014) Anesthesia Reaction: No Hx Neurological Disorder: No Hx Respiratory Disorders: No Hx Cardiac Disorders: Yes (HTN, SVT) Hx Psychiatric Problems: No Hx Miscellaneous Medical Probl: Yes (ANXIETY) Hx Alcohol Use: Yes (OCCASIONAL) Hx Substance Use: No Hx Tobacco Use: No Physical Exam Vitals Vital Signs Date Time Temp Pulse Resp B/P Pulse Ox O2 Delivery O2 Flow Rate FiO2 11/02/16 10:50 98.6 102 17 121/80 97 Physical Exam Const: Talkative, no acute distress Head: Atraumatic Eyes: Normal Conjunctiva. PERRLA. EOM intact. ENT: Normal External Ears, Nose and Mouth. Neck: Full range of motion..~ No meningismus. Resp: Clear to auscultation bilaterally. No absent breath sounds. No wheezing. Cardio: Regular rate and rhythm, no murmurs Abd: Soft, non tender, non distended. Normal bowel sounds Skin: No petechiae or rashes Back: No midline or flank tenderness Ext: No cyanosis, or edema Neur: Awake and alert. Cranial nerves II through XII intact. No gait ataxia. Psych: Normal Mood and Affect Procedures/MDM This a 26-year-old female who presents to the emergency department today complaining of some left-sided chest pain, breast pain occasional shortness of breath and intermittent dizziness for a while. Upon review of patient's medical records this is the patient's 27 visit to local emergency department in 25th visit to this emergency department. Patient has had 3 visits to this emergency department in the past 9 days. For dizziness, congestion and again today's visit. I spent at least 20 minutes in the patient's exam room talking her about her symptoms and her complaints and her concerns of not being heard by her primary care doctor. I explained in great detail about patient's recent negative workup that she has had here in the past week. Patient was seen here on October 24 for dizziness and had a negative chest x-ray completely negative laboratory workup including a negative UA. I do not feel that this needs to be repeated again today. Patient was told by her primary care doctor that she could also be having a stroke or heart attack. Patient has no focal neurologic deficits. She has no gait ataxia and I did not feel that she is having an acute stroke. Do not feel the patient requires a head CT scan at this time. Low suspicion for acute hemorrhage, mass, abscess. Patient does have a history of SVT for which she takes aspirin and diltiazem and labetalol for . I did repeat a EKG here in the emergency department EKG read and interpreted by Dr. Vega. Rate [address] elevation. No QT prolongation. No evidence of SVT, acute CO. Patient oxygen saturation 97%. Do not feel that she requires a chest x-ray. Low suspicion for PE, pleural effusion or pericarditis. I have explained to the patient that there are many causes of dizziness and I recommended that she follow-up with her primary care doctor for possible referral to ENT or neurology specialist. I have also explained to the patient that some of her symptoms especially her chest pain and shortness of breath may be related to her anxiety. I have encouraged the patient to continue following up with her therapist. Patient is taking only 1 mg of Ativan a day broken up into 0.25 mg 4 times a day. This is a low dose and I have explained to the patient that she may benefit from further evaluation in regards to her dosing. I also explained to the patient that she is taking multiple medications and those medications may also cause her to have some dizziness. Patient was in full understanding when she left the emergency department. I did give her a list of referral information for neurology and ENT specialist Patient symptoms at this time is consistent with dizziness of uncertain etiology as well as chest pain and shortness of breath, likely noncardiac and possibly related to anxiety related symptoms At this time the patient is stable for discharge and outpatient management. Patient should follow up with their PCP in the next 1-2 days. They may return to the emergency department sooner for any persistent or worsening of symptoms. Patient understood and agreed with the plan. Departure Diagnosis: Primary Impression: Chest pain Chest pain type: unspecified Qualified Code: R07.9 - Chest pain, unspecified type Additional Impression: Dizziness Condition: YOCASTA GranadoC Nov 02, 2016 12:24
== END 2016-11-02 12:53 | disposition home or self-care (01) ==
LOC: FTE 10:48
DX: R07.9 Chest pain, unspecified (principal); R42 Dizziness and giddiness; I10 Essential (primary) hypertension
CPT/HCPCS: 93005

== ENCOUNTER 2016-11-08 19:11 | Emergency (ER) | payer OTHER ==
[~2016-11-08] VITALS: Ht 162.6 cm; Wt 103.5 kg
[2016-11-08 19:16] VITALS: Ht 162.6 cm; Wt 103.5 kg
[2016-11-08 21:34] LABS: BASOPHILS % 0.4 % (0.0-2.0); EOSINOPHILS # 0.1 10^3/ul (0.0-0.5); EOSINOPHILS % 1.3 % (0.0-7.0); HEMATOCRIT 39.5 % (37.0-47.0); HEMOGLOBIN 12.9 g/dl (12.0-16.0); LYMPHOCYTES # 2.2 10^3/ul (0.8-2.9); LYMPHOCYTES % 23.6 % (15.0-51.0); MEAN CORPUSCULAR HEMOGLOBIN 27.3 pg (29.0-33.0); MEAN CORPUSCULAR HGB CONC 32.7 g/dl (32.0-37.0); MEAN CORPUSCULAR VOLUME 83.7 fl (82.0-101.0); MEAN PLATELET VOLUME 10.7 fl (7.4-10.4); MONOCYTE # 0.5 10^3/ul (0.3-0.9); MONOCYTES % 5.7 % (0.0-11.0); NEUTROPHILS % 68.7 % (39.0-77.0); PLATELET COUNT 312 10^3/UL (140-415); RED BLOOD COUNT 4.72 10^6/ul (4.20-5.40); RED CELL DISTRIBUTION WIDTH 12.8 % (11.5-14.5); WHITE BLOOD COUNT 9.2 10^3/ul (4.8-10.8)
--- NOTE | 2016-11-08 21:43 | RADRPT ---
PROCEDURE: CT Head without. CLINICAL INDICATION: Headache. TECHNIQUE: The study was performed utilizing a multi-slice, multidetector CT scanner. Direct spira l 1 mm axial sections were obtained through the head without the use of intravenous contrast materia l. 1 or more of the following dose reduction techniques were utilized: Automated exposure control, adjustment of the mA and/or kV according to patient's size, iterative reconstruction technique. Co micheline and sagittal reformations were obtained. The images were reviewed on a PACS workstation. RADIATION DOSE: CTDIvol: 40.3 mGyDLP: 169.0 mGy-cm COMPARISON: 04/13/2016 FINDINGS: There is no intracranial hemorrhage, extra-axial fluid collection, mass lesion, midline shift or hyd rocephalus. The ventricles, sulci and cisterns are within normal limits. The white matter is unrem arkable. The tubbs-white matter differentiation is preserved. The basal cisterns are patent. The m idline structures are intact. The orbits, calvarium and extracranial soft tissues are normal in danyelle earance. The visualized paranasal sinuses, mastoid air cells and middle ear cavities are normally ae rated. IMPRESSION: 1. No acute intracranial abnormality. No intracranial hemorrhage, extra-axial fluid collection, ma ss lesion or hydrocephalous. RPTAT: HGAS .Kvng Rajan MD, MD Date Time Electronically viewed and signed by .Kvng Rajan MD, MD on 11/08/2016 21:43 .S/
[2016-11-08 21:48] LABS: INR 1.02; PROTIME 13.4 Sec (12.2-14.2)
[2016-11-08 21:49] LABS: PARTIAL THROMBOPLASTIN TIME 28.1 Sec (25.0-35.0)
[2016-11-08 21:51] LABS: CALCIUM 9.2 mg/dl (8.4-10.2); CREATININE 0.67 mg/dl (0.44-1.00); POTASSIUM 3.7 mmol/L (3.5-5.1)
--- NOTE | 2016-11-08 23:15 | ERD ---
ER Documentation Chief Complaint Date/Time DATE: 11/08/16 TIME: 23:12 Chief Complaint chest pain, dizziness, headache HPI This is a 26-year-old female presents to the ER for dizziness. Patient states that she has had this dizziness for a month now. Patient has been to our ER multiple times for similar complaints. Patient states that dizziness feels as if she is going to fall on as if she does not have good balance. She denies a spinning sensation. Patient denies any head trauma. She does complain of temporal burning headache patient denies any vision loss, vision changes. She denies any nausea or vomiting. She did have one episode of diarrhea today. Patient states that she has not had any fevers or chills. She states that dizziness makes her very anxious and because she is anxious she feels as if her SVT is coming on. Patient suffers from anxiety and takes lorazepam, patient tried taking lorazepam however it did not work. Patient denies any urinary frequency or dysuria. ROS 12 point review of systems was done, all negative except per HPI. Medications Home Meds Active Scripts Fluconazole* (Diflucan*) 150 Mg Tablet, 150 MG PO ONCE, #1 TAB Prov:ANDERSON VEGA DO 10/31/16 Guaifenesin (Guaifenesin) 600 Mg Tablet.sa, 600 MG PO BID for congestion, #20 TAB Prov:ANDERSON VEGA DO 10/31/16 Loratadine/Pseudoephedrine* (Claritin-D* 12 Hr) 5-120 Mg Tab.er.12h, 1 TAB PO Q12, #60 TAB.SA Prov:BHUPENDRA RILEY PA-C 10/24/16 Omeprazole* (Omeprazole*) 40 Mg Capsule.dr, 40 MG PO QAM, #10 CAP Prov:ALISTAIR MEJIA NP 09/19/16 Tramadol HCl (Tramadol HCl) 50 Mg Tablet, 50 MG PO Q6 Y for SEVERE PAIN LEVEL 7- 10, #20 TAB Prov:HECTOR SALTER NP 09/16/16 Famotidine* (Pepcid*) 20 Mg Tablet, 20 MG PO BID for 4 Days, TAB Prov:ALISTAIR MEJIA NP 09/15/16 Ciprofloxacin Hcl* (Ciprofloxacin Hcl*) 500 Mg Tablet, 500 MG PO BID for 3 Days , TAB Prov:MELL MEJIAAH Rajan BUSH 09/15/16 Sulfamethoxazole/Trimethoprim* (Bactrim Ds* Tablet) 1 Each Tablet, 1 TAB PO BID for 3 Days, #14 TAB Prov:YOCASTA NAGEL PA-C 09/15/16 Omeprazole* (Omeprazole*) 20 Mg Capsule.dr, 20 MG PO BID, #20 TAB Prov:ROSI CHOUDHURY PA-C 07/25/16 Naproxen* (Naprosyn*) 500 Mg Tablet, 500 MG PO BID Y for PAIN AND/OR INFLAMMATION, #30 TAB Prov:YOCASTA NAGEL PA-C 07/08/16 Clindamycin Hcl* (Clindamycin Hcl*) 300 Mg Capsule, 300 MG PO TID for 10 Days, # 30 CAP Prov:DARÍO GARCÍA PA-C 07/04/16 Clindamycin Hcl* (Clindamycin Hcl*) 300 Mg Capsule, 300 MG PO BID for 7 Days, # 14 CAP Prov:DARÍO GARCÍA PA-C 07/04/16 Clonazepam* (Klonopin*) 0.5 Mg Tab, 0.25 MG PO BID for 7 Days, TAB Prov:DOROTEO BELL 04/29/16 Famotidine* (Pepcid*) 20 Mg Tablet, 20 MG PO BID for 7 Days, TAB Prov:DOROTEO BELL 04/29/16 Metoprolol Succinate* (Toprol XL*) 50 Mg Tab.er.24h, 50 MG PO DAILY, #20 TAB Prov:DARÍO TEIXEIRA 04/25/16 Flecainide Acetate* (Flecainide Acetate*) 50 Mg Tablet, 50 MG PO BID for 60 Days , TAB Prov:Terrance Heath DO 04/23/16 Diltiazem Hcl* (Cardizem CD*) 120 Mg Cap.sr.24h, 120 MG PO DAILY for 30 Days Prov:Terrance Heath DO 04/23/16 Reported Medications Diltiazem Hcl* (Cardizem SR*) 60 Mg Capsr, 60 MG PO Q12, #60 CAP 06/21/16 Lorazepam* (Ativan*) 2 Mg Tablet, 1 MG PO Q8 Y for ANXIETY, #60 TAB 04/24/16 Lorazepam* (Lorazepam*) 1 Mg Tablet, 1 MG PO Q4 Y for ANXIETY, #60 TAB 04/21/16 Allergies Allergies: Coded Allergies: Penicillins (Verified Allergy, Mild, RASH, 09/24/16) codeine (Verified Allergy, Mild, RASH, 09/24/16) nitrofurantoin (Verified Allergy, Unknown, 09/24/16) Uncoded Allergies: GI COCKTAIL (Allergy, Unknown, hives, 01/05/15) PMhx/Soc History of Surgery: Yes (CHOLECYSTECTOMY 2014) Anesthesia Reaction: No Hx Neurological Disorder: No Hx Respiratory Disorders: No Hx Cardiac Disorders: Yes (SVT, HTN) Hx Psychiatric Problems: No Hx Miscellaneous Medical Probl: Yes (ANXIETY) Hx Alcohol Use: No Hx Substance Use: No Hx Tobacco Use: No Smoking Status: Never smoker Physical Exam Vitals Vital Signs Date Time Temp Pulse Resp B/P Pulse Ox O2 Delivery O2 Flow Rate FiO2 11/08/16 19:16 98.2 108 20 146/84 100 Physical Exam GENERAL: The patient is well developed and appropriate for usual state of health , in no apparent distress. HEENT: Atraumatic. Conjunctivae are pink. Pupils equal, round, and reactive to light. Extraocular muscles are grossly intact. No nystagmus. Bilateral tympanic membranes are clear with no evidence of erythema, bulging or perforation. NECK: C-spine is soft and supple. There is no cervical lymphadenopathy. CHEST: Clear to auscultation bilaterally. There are no rales, wheezes or rhonchi. HEART: Regular rate and rhythm. No murmurs, clicks, rubs or gallops. EXTREMITIES: Equal pulses bilaterally. There is no peripheral clubbing, cyanosis or edema. No focal swelling or erythema. Full range of motion. Grossly neurovascularly intact. NEURO: Alert and oriented. Cranial nerves II through XII are intact. Motor strength in all 4 extremities with 5/5 strength. Sensation grossly intact. Normal speech and gait. Negative Rhomberg. +2 DTRs. SKIN: There is no apparent rash or petechia. The skin is warm and dry. Result Diagram: 11/08/16210911/08/162109 Results 24 hrs Laboratory Tests Test 11/08/16 21:10 White Blood Count 9.210^3/ul Red Blood Count 4.7210^6/ul Hemoglobin 12.9g/dl Hematocrit 39.5% Mean Corpuscular Volume 83.7fl Mean Corpuscular Hemoglobin 27.3pg Mean Corpuscular Hemoglobin Concent 32.7g/dl Red Cell Distribution Width 12.8% Platelet Count 34922^3/UL Mean Platelet Volume 10.7fl Neutrophils % 68.7% Lymphocytes % 23.6% Monocytes % 5.7% Eosinophils % 1.3% Basophils % 0.4% Nucleated Red Blood Cells % 0.0/100WBC Neutrophils # (Manual) 6.310^3/ul Lymphocytes # 2.210^3/ul Monocytes # 0.510^3/ul Eosinophils # 0.110^3/ul Basophils # 0.010^3/ul Nucleated Red Blood Cells # 0.010^3/ul Prothrombin Time 13.4Sec Prothrombin Time Ratio 1.0 INR International Normalized Ratio 1.02 Activated Partial Thromboplast Time 28.1Sec Sodium Level 141mmol/L Potassium Level 3.7mmol/L Chloride Level 101mmol/L Carbon Dioxide Level 27mmol/L Anion Gap 17 Blood Urea Nitrogen 12mg/dl Creatinine 0.67mg/dl Glucose Level 89mg/dl Calcium Level 9.2mg/dl Thyroid Stimulating Hormone (TSH) 2.380MIU/L [place] [id number] Radiology Main Line: [phone] DIAGNOSTIC IMAGING REPORT Patient: PATRICIA OSWALD : 1990 Age: 26 Sex: F MR #: [id number] DOS: 11/08/162103 Ordering MD: DOROTEO BELL PA-C Location: [facility] Room/Bed: PROCEDURE: CT Head without. CLINICAL INDICATION: Headache. TECHNIQUE: The study was performed utilizing a multi-slice, multidetector CT scanner. Direct spiral 1 mm axial sections were obtained through the head without the use of intravenous contrast material. 1 or more of the following dose reduction techniques were utilized: Automated exposure control, adjustment of the mA and/or kV according to patient's size, iterative reconstruction technique. Coronal and sagittal reformations were obtained. The images were reviewed on a PACS workstation. RADIATION DOSE: CTDIvol: 40.3 mGy DLP: 169.0 mGy-cm COMPARISON: 04/13/2016 FINDINGS: There is no intracranial hemorrhage, extra-axial fluid collection, mass lesion, midline shift or hydrocephalus. The ventricles, sulci and cisterns are within normal limits. The white matter is unremarkable. The tubbs-white matter differentiation is preserved. The basal cisterns are patent. The midline structures are intact. The orbits, calvarium and extracranial soft tissues are normal in appearance. The visualized paranasal sinuses, mastoid air cells and middle ear cavities are normally aerated. IMPRESSION: 1. No acute intracranial abnormality. No intracranial hemorrhage, extra-axial fluid collection, mass lesion or hydrocephalous. RPTAT: HGAS .Kvng Rajan MD, MD Date Time Electronically viewed and signed by .Kvng Rajan MD, MD on 11/08/2016 21: 43 .S/ CC: DOROTEO BELL Procedures/MDM Differential Diagnosis includes but is not limited to; Benign positional vertigo , labyrinthitis, vertigo, MS, acoustic neuroma, arrhythmia, anemia, hypoglycemia , infection, dehydration. At this time etiology of patient's dizziness is unknown, however patient is neurologically intact with no focal neurological deficits. Patient's CT imaging was negative for any sort of intracranial abnormality. EKG was done [address] elevation no T-wave inversion, no arrhythmias. Patient blood glucose was normal, there is no evidence of infection or electrolyte abnormality. I doubt dehydration as her blood pressure is normal. Patient is to follow-up with her primary care doctor within 1-2 days return to ER sooner if symptoms worsen. My medical decision making shared with the patient she understands and agrees with plan. Departure Diagnosis: Primary Impression: Dizziness Condition: Stable Patient Instructions: Dizziness, Unk Cause Additional Instructions: Call your primary care doctor TOMORROW for an appointment during the next 1-2 days.See the doctor sooner or return here if your condition worsens before your appointment time. DOROTEO BELL Nov 08, 2016 23:15
[2016-11-08 23:24] VITALS: BP 120/78; PULSE 85; RESP 17
== END 2016-11-08 23:25 | disposition home or self-care (01) ==
LOC: FTE 19:11
DX: R42 Dizziness and giddiness (principal); I10 Essential (primary) hypertension
CPT/HCPCS: 36415; 70450; 80048; 84443; 85025; 85610; 85730; 93005; Z7502

== ENCOUNTER 2016-11-13 20:46 | Emergency (ER) | payer OTHER ==
[~2016-11-13] VITALS: Ht 157.5 cm; Wt 102.0 kg
[2016-11-13 21:08] VITALS: Ht 157.5 cm; Wt 102.0 kg
[2016-11-13 23:36] LABS: BASOPHILS % 0.4 % (0.0-2.0); EOSINOPHILS # 0.1 10^3/ul (0.0-0.5); EOSINOPHILS % 1.5 % (0.0-7.0); HEMATOCRIT 38.8 % (37.0-47.0); HEMOGLOBIN 13.1 g/dl (12.0-16.0); LYMPHOCYTES # 2.6 10^3/ul (0.8-2.9); LYMPHOCYTES % 27.8 % (15.0-51.0); MEAN CORPUSCULAR HEMOGLOBIN 27.8 pg (29.0-33.0); MEAN CORPUSCULAR HGB CONC 33.8 g/dl (32.0-37.0); MEAN CORPUSCULAR VOLUME 82.4 fl (82.0-101.0); MEAN PLATELET VOLUME 10.4 fl (7.4-10.4); MONOCYTE # 0.5 10^3/ul (0.3-0.9); MONOCYTES % 5.8 % (0.0-11.0); NEUTROPHILS % 64.3 % (39.0-77.0); PLATELET COUNT 316 10^3/UL (140-415); RED BLOOD COUNT 4.71 10^6/ul (4.20-5.40); RED CELL DISTRIBUTION WIDTH 12.8 % (11.5-14.5); WHITE BLOOD COUNT 9.3 10^3/ul (4.8-10.8)
[2016-11-14 00:10] LABS: ANION GAP 17 (8-16); BLOOD UREA NITROGEN 8 mg/dl (7-20); CALCIUM 9.2 mg/dl (8.4-10.2); CARBON DIOXIDE 28 mmol/L (21-31); CHLORIDE 100 mmol/L (97-110); CREATININE 0.57 mg/dl (0.44-1.00); GLUCOSE 92 mg/dl (70-220); POTASSIUM 3.6 mmol/L (3.5-5.1); SODIUM 141 mmol/L (135-144)
--- NOTE | 2016-11-14 00:16 | RADRPT ---
PROCEDURE: CHEST - 1 VIEW CLINICAL INDICATION: 26-year-old female with chest pain. TECHNIQUE: A single frontal AP upright portable view of the chest was performed. The images were reviewed on a PACS workstation. COMPARISON: Chest x-ray October 24, 2016. FINDINGS: The cardiomediastinal silhouette has a normal appearance. There is no evidence for an infiltrate. T he pulmonary vascularity is within normal limits. There is no evidence for pneumothorax or pneumomed iastinum. The osseous structures are intact. IMPRESSION: No evidence for active cardiopulmonary disease. .Gregory Soni MD, Date Time Electronically viewed and signed by .Gregory Soni MD, on 11/14/2016 00:16 .M/
[2016-11-14 00:22] LABS: TROPONIN-I < 0.012 ng/ml (0.00-0.12)
--- NOTE | 2016-11-14 01:10 | ERD ---
ER Documentation Chief Complaint Date/Time DATE: 11/14/16 TIME: 01:05 Chief Complaint chest pain, radiating to left arm. Same feeling when she had SVT before HPI 26-year-old female complaining of chest pain times a few hours. Patient stated that she has history of SVT. She had an episode of SVT this evening with heart rate of 1 70 bpm. The SVT episode lasted about 15-20 minutes. Patient reports feeling substernal chest pain and left arm pain shortly after the resolution of the SVT. Patient is followed by manager supply chain planning for SVT. She is taking diltiazem , losartan, baby aspirin, magnesium, and Ativan. Denies shortness of breath at this time. Denies fever or chills. Denies palpitations at this time. ROS All systems reviewed and are negative except as per history of present illness. Medications Home Meds Active Scripts Fluconazole* (Diflucan*) 150 Mg Tablet, 150 MG PO ONCE, #1 TAB Prov:SILVIAANDERSON 10/31/16 Guaifenesin (Guaifenesin) 600 Mg Tablet.sa, 600 MG PO BID for congestion, #20 TAB Prov:ANDERSON VEGA DO 10/31/16 Loratadine/Pseudoephedrine* (Claritin-D* 12 Hr) 5-120 Mg Tab.er.12h, 1 TAB PO Q12, #60 TAB.SA Prov:BHUPENDRA RILEY PA-C 10/24/16 Omeprazole* (Omeprazole*) 40 Mg Capsule., 40 MG PO QAM, #10 CAP Prov:ALISTAIR MEJIA NP 09/19/16 Tramadol HCl (Tramadol HCl) 50 Mg Tablet, 50 MG PO Q6 Y for SEVERE PAIN LEVEL 7- 10, #20 TAB Prov:HECTOR SALTER NP 09/16/16 Famotidine* (Pepcid*) 20 Mg Tablet, 20 MG PO BID for 4 Days, TAB Prov:ALISTAIR MEJIA NP 09/15/16 Ciprofloxacin Hcl* (Ciprofloxacin Hcl*) 500 Mg Tablet, 500 MG PO BID for 3 Days , TAB Prov:ALISTAIR MEJIA NP 09/15/16 Sulfamethoxazole/Trimethoprim* (Bactrim Ds* Tablet) 1 Each Tablet, 1 TAB PO BID for 3 Days, #14 TAB Prov:PROUSE,YOCASTA M. PA-C 09/15/16 Omeprazole* (Omeprazole*) 20 Mg Capsule.dr, 20 MG PO BID, #20 TAB Prov:ROSI CHOUDHURY PA-C 07/25/16 Naproxen* (Naprosyn*) 500 Mg Tablet, 500 MG PO BID Y for PAIN AND/OR INFLAMMATION, #30 TAB Prov:YOCASTA NAGEL PA-C 07/08/16 Clindamycin Hcl* (Clindamycin Hcl*) 300 Mg Capsule, 300 MG PO TID for 10 Days, # 30 CAP Prov:DARÍO GARCÍA PA-C 07/04/16 Clindamycin Hcl* (Clindamycin Hcl*) 300 Mg Capsule, 300 MG PO BID for 7 Days, # 14 CAP Prov:DARÍO GARCÍA PA-C 07/04/16 Clonazepam* (Klonopin*) 0.5 Mg Tab, 0.25 MG PO BID for 7 Days, TAB Prov:DOROTEO BELL 04/29/16 Famotidine* (Pepcid*) 20 Mg Tablet, 20 MG PO BID for 7 Days, TAB Prov:DOROTEO BELL 04/29/16 Metoprolol Succinate* (Toprol XL*) 50 Mg Tab.er.24h, 50 MG PO DAILY, #20 TAB Prov:DARÍO TEIXEIRA 04/25/16 Flecainide Acetate* (Flecainide Acetate*) 50 Mg Tablet, 50 MG PO BID for 60 Days , TAB Prov:Terrance Heath DO 04/23/16 Diltiazem Hcl* (Cardizem CD*) 120 Mg Cap.sr.24h, 120 MG PO DAILY for 30 Days Prov:Terrance Heath DO 04/23/16 Reported Medications Diltiazem Hcl* (Cardizem SR*) 60 Mg Capsr, 60 MG PO Q12, #60 CAP 06/21/16 Lorazepam* (Ativan*) 2 Mg Tablet, 1 MG PO Q8 Y for ANXIETY, #60 TAB 04/24/16 Lorazepam* (Lorazepam*) 1 Mg Tablet, 1 MG PO Q4 Y for ANXIETY, #60 TAB 04/21/16 Allergies Allergies: Coded Allergies: Penicillins (Verified Allergy, Mild, RASH, 7/10/17) codeine (Verified Allergy, Mild, RASH, 09/24/16) nitrofurantoin (Verified Allergy, Unknown, 09/24/16) Uncoded Allergies: GI COCKTAIL (Allergy, Unknown, hives, 01/05/15) PMhx/Soc History of Surgery: Yes (Cholecystectomy 2015) Anesthesia Reaction: No Hx Neurological Disorder: No Hx Respiratory Disorders: No Hx Cardiac Disorders: Yes (SVT,HTN) Hx Psychiatric Problems: No Hx Miscellaneous Medical Probl: Yes (Anxiety) Hx Alcohol Use: No Hx Substance Use: No Hx Tobacco Use: No Smoking Status: Unknown if ever smoked Physical Exam Vitals Vital Signs Date Time Temp Pulse Resp B/P Pulse Ox O2 Delivery O2 Flow Rate FiO2 11/14/16 00:42 60 18 104/62 100 Room Air 11/13/16 21:08 98.1 105 22 127/75 98 Physical Exam General: Well-developed, well-nourished, conscious and coherent, in no distress Skin: Warm and dry without rash, good texture and turgor Head: Normocephalic without evidence of trauma Eyes: Sclera and conjunctivae normal; pupils equal, round, and reactive to light; extraocular movements are intact Chest: Normal AP diameter. Good expansion without retractions. Nontender. Lungs are clear to auscultate bilaterally with good tidal volume. No chest wall tenderness on palpation. Heart: Regular rate and rhythm. No murmur, rub, or gallops heard Pelvis: Nontender to palpation and stable to compression Extremities: Full range of motion. Good strength bilaterally. No clubbing, cyanosis, or edema. Peripheral pulses are intact. Sensation intact Neuro: Alert and oriented 4, GCS 15. Cranial nerves grossly intact. Motor and sensory exams nonfocal. Moves all extremities. Speech clear. Gait normal Result Diagram: 11/13/16 2325 11/13/16 2325 Results 24 hrs Laboratory Tests Test 11/13/16 23:25 White Blood Count 9.310^3/ul Red Blood Count 4.7110^6/ul Hemoglobin 13.1g/dl Hematocrit 38.8% Mean Corpuscular Volume 82.4fl Mean Corpuscular Hemoglobin 27.8pg Mean Corpuscular Hemoglobin Concent 33.8g/dl Red Cell Distribution Width 12.8% Platelet Count 91957^3/UL Mean Platelet Volume 10.4fl Neutrophils % 64.3% Lymphocytes % 27.8% Monocytes % 5.8% Eosinophils % 1.5% Basophils % 0.4% Nucleated Red Blood Cells % 0.0/100WBC Neutrophils # (Manual) 5.910^3/ul Lymphocytes # 2.610^3/ul Monocytes # 0.510^3/ul Eosinophils # 0.110^3/ul Basophils # 0.010^3/ul Nucleated Red Blood Cells # 0.010^3/ul Sodium Level 141mmol/L Potassium Level 3.6mmol/L Chloride Level 100mmol/L Carbon Dioxide Level 28mmol/L Anion Gap 17 Blood Urea Nitrogen 8mg/dl Creatinine 0.57mg/dl Glucose Level 92mg/dl Calcium Level 9.2mg/dl Troponin I < 0.012ng/ml Procedures/MDM Well-appearing 26-year-old female with history of frequent SVT present ED with chest pain 4 hours. EKG: Sinus tachycardia with rate of 101 bpm, normal axis. Poor R-wave progression. No ST segment elevation or depression. No ectopic beats. No QT prolongation. No other EKG abnormalities. EKG read by Dr. Vega. CBC, BMP, troponin, and chest x-ray was obtained. All were negative. Low suspicion for ND. Patient does not have any SVT at this time. Her heart rate has slowed down to 60 bpm. Patient appears well, stable for discharge and outpatient management. Medical decision making shared with patient and family. Education provided to patient and family. Patient and family expressed understanding of the plan. Medications on discharge: None. Follow-up: Primary care provider or manager supply chain planning in 2-3 days or return to ED if worse. The case was reviewed and discussed with Dr. Teixeira, who agrees with the plan of care including labs, treatment, and advanced imaging as appropriate. Disclaimer: Inadvertent spelling and grammatical errors are likely due to EHR/ dictation software use and do not reflect on the overall quality of patient care. Also, please note that the electronic time recorded on this note does not necessarily reflect the actual time of the patient encounter. Departure Diagnosis: Primary Impression: Chest pain Chest pain type: unspecified Qualified Code: R07.9 - Chest pain, unspecified type Condition: Stable Patient Instructions: Chest Pain, Uncertain Cause Referrals: JOHN OLIVERA (PCP) Additional Instructions: Call your primary care doctor TOMORROW for an appointment during the next 2-3 days.See the doctor sooner or return here if your condition worsens before your appointment time. Follow up with your manager supply chain planning. ROLAN JUÁREZ NP Nov 14, 2016 01:10
[2016-11-14 02:02] VITALS: BP 120/69; PULSE 75; RESP 16
== END 2016-11-14 02:03 | disposition home or self-care (01) ==
LOC: FTE 20:46
DX: R07.2 Precordial pain (principal); I10 Essential (primary) hypertension
CPT/HCPCS: 36415; 71010; 80048; 84484; 85025; 93005; Z7502

== ENCOUNTER 2016-12-11 11:56 | Day surgery (SDC) | payer OTHER ==
[~2016-12-11] VITALS: Ht 160 cm; Wt 101.7 kg
[~2016-12-11 11:56] MED LIST changes: +METO-319 PO; -METO50TA16 PO
[2016-12-11 12:40] VITALS: BP 128/77; PULSE 81; RESP 16
[2016-12-11] MEDS ORDERED: LOSA25TA5 PO (12:41)
[2016-12-11] MEDS ORDERED: LORA-186 PO (12:42)
[2016-12-11] MEDS ORDERED: ASPI-664 PO (12:42)
[2016-12-11] MEDS ORDERED: MAGN500C PO (12:43)
[2016-12-11] MEDS ORDERED: VANCOMYCIN 1 GM in NS 250 ML IVPB SCH (12:47)
[2016-12-11 12:48] VITALS: Ht 160 cm; Wt 101.7 kg
[2016-12-11 12:55] LABS: BASOPHIL # 0.1 10^3/ul (0.0-0.1); BASOPHILS % 0.8 % (0.0-2.0); EOSINOPHILS # 0.2 10^3/ul (0.0-0.5); EOSINOPHILS % 3.4 % (0.0-7.0); HEMATOCRIT 39.5 % (37.0-47.0); LYMPHOCYTES # 1.4 10^3/ul (0.8-2.9); LYMPHOCYTES % 23.2 % (15.0-51.0); MEAN CORPUSCULAR HEMOGLOBIN 26.5 pg (29.0-33.0); MEAN CORPUSCULAR HGB CONC 32.9 g/dl (32.0-37.0); MEAN CORPUSCULAR VOLUME 80.6 fl (82.0-101.0); MEAN PLATELET VOLUME 11.1 fl (7.4-10.4); MONOCYTE # 0.4 10^3/ul (0.3-0.9); MONOCYTES % 6.2 % (0.0-11.0); NEUTROPHILS % 66.2 % (39.0-77.0); PLATELET COUNT 303 10^3/UL (140-415); RED CELL DISTRIBUTION WIDTH 13.3 % (11.5-14.5); WHITE BLOOD COUNT 6.1 10^3/ul (4.8-10.8)
[2016-12-11 13:07] LABS: INR 1.04; PROTIME 13.6 Sec (12.2-14.2); PT RATIO 1.1
[2016-12-11 13:08] LABS: PARTIAL THROMBOPLASTIN TIME 29.2 Sec (25.0-35.0)
[2016-12-11 13:12] LABS: CREATININE 0.67 mg/dl (0.44-1.00)
[2016-12-11] MEDS ORDERED: LIDOCAINE 1%/EPI 30 ML INJ ONE (15:01)
--- NOTE | 2016-12-11 16:01 | SIPON ---
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
[2016-12-11 16:50] VITALS: BP 113/64; PULSE 66; RESP 18
--- NOTE | 2016-12-11 18:16 | OPR ---
DATE OF OPERATION: 12/11/2016 INDICATION FOR THE PROCEDURE: An episode of syncope, near syncope and palpitations. The patient presents for a loop recorder implant. The patient has tried Holter monitors as well as an event monitor and has not had the episodes recorded. As a result now, the patient will have a loop recorder implanted due to the fact that she is having recurrent problems. PROCEDURE: 1. Implantation of a Medtronic loop recorder. 2. Local sedation subcutaneously. 3. Interrogation and reprogramming of the loop recorder. OPERATION PERFORMED: After obtained informed consent was obtained by the patient, the patient was brought to the cardiac recovery unit where the patient's left chest was prepped and draped in the usual sterile fashion. Following this, 1 percent lidocaine was used to infiltrate at the midclavicular 5th intercostal space. Following this, the patient then had implantation of the Medtronic Link loop recorder with a [employer] tool. Following this, the patient's skin was sutured using 4-0 Vicryl and following this the patient had Steri-Strips over the skin and the patient left the cardiac operating room in table condition. IMPLANTED MATERIAL: 1. Medtronic loop recorder implant. 2. Interrogation of the loop recorder implant with no complications. The patient was given clindamycin 300 mg 1 tablet daily to take. The patient will be followed up in the office in approximately 2 weeks. Dictated By: Wilton Elmore MD /cesar/chula /Document#: [id number]
== END 2016-12-11 17:30 | disposition home or self-care (01) ==
LOC: SDS 11:56
PROVIDERS: ATTEND Internal Medicine
DX: R55 Syncope and collapse (principal); R00.2 Palpitations
CPT/HCPCS: 33282; 82565; 84520; 85025; 85610; 85730; J3370; Z7610

== ENCOUNTER 2017-02-07 00:49 | Emergency (ER) | payer OTHER ==
[~2017-02-07] VITALS: Ht 152.4 cm; Wt 102.1 kg
[~2017-02-07 00:49] MED LIST changes: +ASPI-664 PO; -CIPR500T4 PO; -CLIN-73 PO; -CLON-429 PO; -DILT120C77 PO; -FAMO-96 PO; -FLEC50TA PO; -FLUC150T17 PO; -GUAI600T14 PO; +LORA-186 PO; -LORA-444 PO; -LORA1TAB PO; -LORA1TAB54 PO; +LOSA25TA5 PO; +MAGN500C PO; -METO-319 PO; -NAPR-260 PO; -OMEP20CA16 PO; -SULF1TAB31 PO; -TRAM50TA2 PO
[2017-02-07 00:55] VITALS: Ht 152.4 cm; Wt 102.1 kg
[2017-02-07 02:03] LABS: URINE BLOOD (Dip) POC Trace-intact (NEGATIVE)
[2017-02-07] MEDS ORDERED: SOD CHLORIDE 0.9% 1,000 ML IV STA (02:27)
[2017-02-07] MEDS ORDERED: FAMOTIDINE 20 MG INJ IV STA (02:27)
[2017-02-07] MEDS ORDERED: KETOROLAC 15 MG INJ IV STA (02:30)
--- NOTE | 2017-02-07 02:30 | ERD ---
ER Documentation Chief Complaint Chief Complaint N/V/D x 2, fever, chills x 2 days. HPI Patient is a 26-year-old female who presents with gradual onset, intermittent, nonbloody, nonbilious emesis for the last 2 days. She states that the vomiting stopped today and she had approximately 10 episodes of yellow, diarrhea. Yesterday, she had approximately 7 episodes of emesis. She reports having epigastric pain that radiates to bilateral flanks. She denies lower abdominal pain, vaginal discharge, dysuria. She reports having fever. She denies headache. She denies recent travel, eating undercooked foods. She did have contact with a coworker who had stomach flu last week. ROS All systems reviewed and are negative except as per history of present illness. Medications Home Meds Active Scripts Ondansetron Hcl* (Zofran*) 4 Mg Tablet, 4 MG PO Q8H Y for NAUSEA AND/OR VOMITING , #12 TAB Prov:ALEXIS RAMOS MD 02/07/17 Famotidine* (Pepcid*) 20 Mg Tablet, 20 MG PO BID for 7 Days, TAB Prov:ALEXIS RAMOS MD 02/07/17 Omeprazole* (Omeprazole*) 40 Mg Capsule., 40 MG PO QAM, #10 CAP Prov:ALISTAIR MEJIA NP 09/19/16 Reported Medications Magnesium Oxide (Magnesium) 500 Mg Capsule, 500 MG PO DAILY, CAP 12/11/16 Loratadine* (Claritin*) 10 Mg Tablet, 10 MG PO DAILY, TAB 12/11/16 Aspirin (Low Dose Aspirin) 81 Mg Tablet.dr, 81 MG PO DAILY, #30 TAB 12/11/16 Losartan Potassium* (Losartan Potassium*) 25 Mg Tablet, 25 MG PO DAILY, TAB 12/11/16 Diltiazem Hcl* (Cardizem SR*) 60 Mg Capsr, 60 MG PO Q12, #60 CAP 06/21/16 Allergies Allergies: Coded Allergies: Penicillins (Verified Allergy, Mild, RASH, 12/11/16) codeine (Verified Allergy, Mild, RASH, 12/11/16) nitrofurantoin (Verified Allergy, Unknown, 12/11/16) Uncoded Allergies: GI COCKTAIL (Allergy, Unknown, hives, 01/05/15) PMhx/Soc Past medical history: SVT, hypertension, anxiety Past surgical history: Cholecystectomy 2015 Last menstrual: 1 week Social history: Denies tobacco or alcohol, denies illicit drugs History of Surgery: Yes (CHOLECYSTECTOMY) Anesthesia Reaction: Yes (FEELS ITCHY UPON WAKING UP) Hx Neurological Disorder: No Hx Respiratory Disorders: No Hx Cardiac Disorders: Yes (HTN ,SVT) Hx Psychiatric Problems: Yes (ANXIETY) Hx Miscellaneous Medical Probl: Yes (OBESITY) Hx Alcohol Use: Yes (SOCIAL) Hx Substance Use: No Hx Tobacco Use: No FmHx Family History: diabetes, No coronary disease Physical Exam Vitals Vital Signs Date Time Temp Pulse Resp B/P Pulse Ox O2 Delivery O2 Flow Rate FiO2 02/07/17 05:25 98.5 103 18 107/68 98 Room Air 02/07/17 00:55 100.7 130 24 132/84 99 Physical Exam Const: Alert, appears mildly uncomfortable Head: Atraumatic Eyes: Normal Conjunctiva, No pallor, no icterus ENT: Normal External Ears, Nose and Mouth. Mucous membranes moist Neck: Full range of motion..~ No meningismus. Resp: Clear to auscultation bilaterally, No wheezes, no rales Cardio: Tachycardia, regularrhythm, no murmurs Abd: Soft, Tenderness in the epigastrium, no lower abdominal tenderness, no rebound or guarding Skin: No petechiae or rashes Back: No midline or flank tenderness, No CVA tenderness Ext: No cyanosis, or edema Neur: Awake and alert, Cranial nerves II through XII intact bilaterally, strength and sensation full for extremity Psych: Normal Mood and Affect Result Diagram: 02/07/17 0300 02/07/17 0400 Results 24 hrs Laboratory Tests Test 02/07/17 02:00 02/07/17 02:01 02/07/17 03:00 02/07/17 04:00 Urine Color YELLOW Urine Clarity CLEAR Urine pH 5.0 Urine Specific [place] Path 1.018 Urine Ketones NEGATIVEmg/dL Urine Nitrite NEGATIVEmg/dL Urine Bilirubin NEGATIVEmg/dL Urine Urobilinogen 2+mg/dL Urine Leukocyte Esterase NEGATIVELeu/ul Urine Hemoglobin NEGATIVEmg/dL Urine Glucose NEGATIVEmg/dL Urine Total Protein NEGATIVEmg/dl Bedside Urine pH (LAB) 5.5 Bedside Urine Protein (LAB) 1+ Bedside Urine Glucose (UA) Negative Bedside Urine Ketones (LAB) Trace Bedside Urine Blood Trace-intact Bedside Urine Nitrite (LAB) Negative Bedside Urine Leukocyte Esterase (L Negative White Blood Count 12.510^3/ul Red Blood Count 4.8610^6/ul Hemoglobin 12.9g/dl Hematocrit 39.1% Mean Corpuscular Volume 80.5fl Mean Corpuscular Hemoglobin 26.5pg Mean Corpuscular Hemoglobin Concent 33.0g/dl Red Cell Distribution Width 12.9% Platelet Count 42697^3/UL Mean Platelet Volume 11.2fl Neutrophils % 89.1% Lymphocytes % 4.2% Monocytes % 6.1% Eosinophils % 0.2% Basophils % 0.2% Nucleated Red Blood Cells % 0.0/100WBC Neutrophils # 11.110^3/ul Lymphocytes # 0.510^3/ul Monocytes # 0.810^3/ul Eosinophils # 0.010^3/ul Basophils # 0.010^3/ul Nucleated Red Blood Cells # 0.010^3/ul Serum HCG, Qualitative NEGATIVE Sodium Level 143mmol/L Potassium Level 3.3mmol/L Chloride Level 107mmol/L Carbon Dioxide Level 26mmol/L Anion Gap 13 Blood Urea Nitrogen 6mg/dl Creatinine 0.63mg/dl Glucose Level 120mg/dl Calcium Level 8.9mg/dl Total Bilirubin 0.7mg/dl Direct Bilirubin 0.00mg/dl Indirect Bilirubin 0.7mg/dl Aspartate Amino Transf (AST/SGOT) 841IU/L Alanine Aminotransferase (ALT/SGPT) 538IU/L Alkaline Phosphatase 185IU/L Total Protein 7.3g/dl Albumin 3.7g/dl Globulin 3.60g/dl Albumin/Globulin Ratio 1.02 Lipase 75U/L Current Medications Medications (Trade) Dose Ordered Sig/Samantha Route PRN Reason Start Time Stop Time Status Last Admin Dose Admin Sodium Chloride (NS) 1,000 ml @ 1,000 mls/hr Q1H STAT IV 02/07/17 02:27 02/07/17 03:26 DC 02/07/17 02:35 Famotidine (Pepcid Iv) 20 mg ONCE STAT IV 02/07/17 02:27 02/07/17 02:28 DC 02/07/17 02:35 Ketorolac Tromethamine (Toradol) 15 mg ONCE STAT IV 02/07/17 02:30 02/07/17 02:31 DC 02/07/17 02:35 Procedures/MDM EKG read by me: Time 0327, rate 108 Rhythm: Sinus tachycardia Triplett: Normal Intervals: Normal ST-T waves: no ischemic changes Ectopy: No Q-waves: No Impression: Sinus tachycardia, no evidence of ischemia or arrhythmia MDM: Patient is a 26-year-old female who presents with epigastric pain, vomiting , and diarrhea over the last 2 days. She has low-grade fever. She had a benign abdominal exam. She is status post cholecystectomy 2 years ago. She was given Pepcid and IV fluids, and on reassessment states that her pain is significantly improved. She is able to tolerate oral intake without vomiting. She does not have significant electrolyte abnormalities except for mild alkalemia. Her vital signs normalized with IV fluids. She is nontoxic appearing. She incidentally was found to have elevated transaminases. She does not have elevated bilirubin. I have low suspicion for retained stone, especially given near resolution of her pain. She states that she has been immunized against hepatitis B. She does not have any high risk behaviors or contacts for other hepatitides. She was advised on careful return precautions and need for repeat LFT testing within the next few days. Symptomatically, her condition is consistent with viral gastroenteritis. Departure Diagnosis: Primary Impression: Gastroenteritis Additional Impression: Abnormal liver function test Condition: ALEXIS Hoskins MD Feb 07, 2017 02:30
[2017-02-07 03:05] LABS: ADD UMIC NO; UR ASCORBIC ACID 20 mg/dL (NEGATIVE); UR BILIRUBIN (Dip) NEGATIVE (NEGATIVE); UR BLOOD (Dip) NEGATIVE (NEGATIVE); UR CLARITY CLEAR (CLEAR); UR COLOR YELLOW (YELLOW); UR GLUCOSE (Dip) NEGATIVE (NEGATIVE); UR KETONES (Dip) NEGATIVE (NEGATIVE); UR LEUKOCYTE ESTERASE (Dip) NEGATIVE Leu/ul (NEGATIVE); UR NITRITE (Dip) NEGATIVE (NEGATIVE); UR SPECIFIC GRAVITY (Dip) 1.018 (1.003-1.030); UR TOTAL PROTEIN (Dip) NEGATIVE (NEGATIVE); UR UROBILINOGEN (Dip) 2+ mg/dL (NEGATIVE)
[2017-02-07 03:21] LABS: ABNORMAL IP MESSAGE 1; BASOPHILS % 0.2 % (0.0-2.0); EOSINOPHILS % 0.2 % (0.0-7.0); HEMATOCRIT 39.1 % (37.0-47.0); HEMOGLOBIN 12.9 g/dl (12.0-16.0); LYMPHOCYTES # 0.5 10^3/ul (0.8-2.9); LYMPHOCYTES % 4.2 % (15.0-51.0); MEAN CORPUSCULAR HEMOGLOBIN 26.5 pg (29.0-33.0); MEAN CORPUSCULAR VOLUME 80.5 fl (82.0-101.0); MEAN PLATELET VOLUME 11.2 fl (7.4-10.4); MONOCYTE # 0.8 10^3/ul (0.3-0.9); MONOCYTES % 6.1 % (0.0-11.0); NEUTROPHIL # 11.1 10^3/ul (1.6-7.5); NEUTROPHILS % 89.1 % (39.0-77.0); PLATELET COUNT 252 10^3/UL (140-415); RED BLOOD COUNT 4.86 10^6/ul (4.20-5.40); RED CELL DISTRIBUTION WIDTH 12.9 % (11.5-14.5); WHITE BLOOD COUNT 12.5 10^3/ul (4.8-10.8)
[2017-02-07 03:25] LABS: POSITIVE DIFF @See below
[2017-02-07 04:40] LABS: ALBUMIN 3.7 g/dl (3.3-4.9); ALBUMIN/GLOBULIN RATIO 1.02; BILIRUBIN,INDIRECT 0.7 mg/dl (0-1.1); BILIRUBIN,TOTAL 0.7 mg/dl (0.2-1.3); CALCIUM 8.9 mg/dl (8.4-10.2); CREATININE 0.63 mg/dl (0.44-1.00); POTASSIUM 3.3 mmol/L (3.5-5.1); TOTAL PROTEIN 7.3 g/dl (6.1-8.1)
[2017-02-07] MEDS ORDERED: FAMO-96 PO (05:19)
[2017-02-07] MEDS ORDERED: ONDA4TAB8 PO (05:19)
[2017-02-07 05:25] VITALS: BP 107/68; PULSE 103; RESP 18; TEMP 98.5
== END 2017-02-07 05:45 | disposition home or self-care (01) ==
LOC: E/R 00:49
DX: K52.9 Noninfective gastroenteritis and colitis, unspecified (principal); R94.5 Abnormal results of liver function studies; I10 Essential (primary) hypertension; E66.9 Obesity, unspecified; Z68.41 Body mass index [BMI] 40.0-44.9, adult; Z79.82 Long term (current) use of aspirin
CPT/HCPCS: 36415; 80053; 81003; 83690; 84703; 85025; 96361; 96374; 96375; J1885; J7030; Z7502; Z7610

== ENCOUNTER 2017-03-09 18:23 | Emergency (ER) | payer OTHER ==
[~2017-03-09] VITALS: Ht 157.5 cm; Wt 104.1 kg
[~2017-03-09 18:23] MED LIST changes: +FAMO-96 PO; +ONDA4TAB8 PO
[2017-03-09 18:35] VITALS: Ht 157.5 cm; Wt 104.1 kg
--- NOTE | 2017-03-09 19:42 | RADRPT ---
PROCEDURE: XR Chest. CLINICAL INDICATION: Cough for 1 month. TECHNIQUE: Single frontal view. COMPARISON: No prior study is available for comparison. FINDINGS: The lungs are clear. The heart size is normal. There is a cardiac loop recorder noted overlying the left side of the ches t. There is no pleural effusion. There is no pneumothorax. IMPRESSION: 1. Cardiac loop recorder. 2. Otherwise normal chest radiograph. RPTAT: QQ .Eliezer Perla MD, MD Date Time Electronically viewed and signed by .Eliezer Perla MD, MD on 03/09/2017 19:41 .R/
[2017-03-09] MEDS ORDERED: CLIN-73 PO (19:57)
[2017-03-09] MEDS ORDERED: BENZ100C70 PO (19:57)
[2017-03-09] MEDS ORDERED: PRED20TA PO (19:57)
[2017-03-09] MEDS ORDERED: PRED10TA PO (20:05)
--- NOTE | 2017-03-09 20:09 | ERD ---
ER Documentation Chief Complaint Chief Complaint cold symptoms x a month HPI 26-year-old female history of SVT, hypertension comes emergency right with cough symptoms for a month. Patient states that she has had generally dry cough but occasionally will cough up sputum is yellow colored. She has not had any fevers chills, chest pain, shortness breath or hemoptysis. ROS All systems reviewed and are negative except as per history of present illness. Medications Home Meds Active Scripts Prednisone* (Prednisone*) 20 Mg Tab, 20 MG PO DAILY for 5 Days, TAB Prov:JUAN LUIS KISER PA-C 03/09/17 Benzonatate* (Tessalon Perle*) 100 Mg Capsule, 100 MG PO Q8H Y for COUGH, #30 CAP Prov:JUAN LUIS KISER PA-C 03/09/17 Clindamycin Hcl* (Clindamycin Hcl*) 300 Mg Capsule, 300 MG PO TID for 7 Days, CAP Prov:JUAN LUIS KISER PA-C 03/09/17 Ondansetron Hcl* (Zofran*) 4 Mg Tablet, 4 MG PO Q8H Y for NAUSEA AND/OR VOMITING , #12 TAB Prov:ALEXIS RAMOS MD 02/07/17 Famotidine* (Pepcid*) 20 Mg Tablet, 20 MG PO BID for 7 Days, TAB Prov:ALEXIS RAMOS MD 02/07/17 Omeprazole* (Omeprazole*) 40 Mg Capsule., 40 MG PO QAM, #10 CAP Prov:ALISTAIR MEJIA NP 09/19/16 Reported Medications Magnesium Oxide (Magnesium) 500 Mg Capsule, 500 MG PO DAILY, CAP 12/11/16 Loratadine* (Claritin*) 10 Mg Tablet, 10 MG PO DAILY, TAB 12/11/16 Aspirin (Low Dose Aspirin) 81 Mg Tablet.dr, 81 MG PO DAILY, #30 TAB 12/11/16 Losartan Potassium* (Losartan Potassium*) 25 Mg Tablet, 25 MG PO DAILY, TAB 12/11/16 Diltiazem Hcl* (Cardizem SR*) 60 Mg Capsr, 60 MG PO Q12, #60 CAP 06/21/16 Allergies Allergies: Coded Allergies: Penicillins (Verified Allergy, Mild, RASH, 12/11/16) codeine (Verified Allergy, Mild, RASH, 12/11/16) nitrofurantoin (Verified Allergy, Unknown, 12/11/16) Uncoded Allergies: GI COCKTAIL (Allergy, Unknown, hives, 01/05/15) PMhx/Soc History of Surgery: Yes (Cholecystectomy, Loop Recorder) Anesthesia Reaction: Yes (Itchiness) Hx Neurological Disorder: No Hx Respiratory Disorders: No Hx Cardiac Disorders: Yes (HTN,SVT) Hx Psychiatric Problems: Yes (Anxiety D/O) Hx Miscellaneous Medical Probl: Yes (Obesity) Hx Alcohol Use: Yes (Social) Hx Substance Use: No Hx Tobacco Use: No Smoking Status: Never smoker Physical Exam Vitals Vital Signs Date Time Temp Pulse Resp B/P Pulse Ox O2 Delivery O2 Flow Rate FiO2 03/09/17 18:35 98.4 102 20 141/87 100 Physical Exam General: Well-developed, well-nourished. The patient appears in no acute distress. HEENT: Head is normocephalic, atraumatic. No scleral icterus. Pupils are equal , round, and reactive. Oral mucous membranes are moist. No pharyngeal erythema. Neck: Supple. Nontender. Lungs: Clear to auscultation. Normal air movement. Heart: Regular rate and rhythm. S1 and S2 are normal. No murmurs, gallops, or rubs. Abdomen: Soft, nontender, nondistended. Bowel sounds are normoactive. Extremities: No clubbing or cyanosis. Normal pulses. Moving extremities x 4. No weakness. Neurologic: Alert and oriented 3. No focal deficits. Skin: Normal turgor. No rash or lesions. Results 24 hrs Chest X-ray 2V Interpreted by me and the radiologist: Soft Tissue: No acute abnormalities Bones: No acute abnormalities Mediastinum/Cardiac Silhouette/Lungs: No acute abnormalities Procedures/MDM The patient is a a 6-year-old female who comes in with an acute upper respiratory infection. The patient states that due to her history of SVT she is very nervous to take medications. She has been taking Zyrtec, Flonase and as Atrovent without relief and continues to have a productive cough. Her chest x-ray is normal. I discussed with her antibiotic options, we will treat with low dose of prednisone, 10 mg twice daily as well as Tessalon Perles. Decision to treat with antibiotics only if the patient does not improve with these medications. Patient states that she did tolerate clindamycin for a sinus infection previously, she was advised that certain bacteria will not cover with is choosing to take this she was tolerating before she is very nervous about any cardiovascular adverse effects with other antibiotics especially Zithromax which I understand. She will be advised to start clindamycin in 2-3 days if symptoms do not improve, she has a follow-up appointment with her doctor next for recheck. The patient has a differential diagnosis of a viral upper respiratory infection, bacterial upper respiratory infection, bronchitis, pneumonia, pharyngitis, laryngitis, epiglottitis, croup, pneumonia. Patient has a normal pulmonary examination, clear breath sounds, normal pulse oximetry, with no corrective measures needed at this time. Fluids, rest, antipyretics were encouraged. Departure Diagnosis: Primary Impression: Cough Condition: Good Patient Instructions: Uri, Viral, No Abx (Adult) JUAN LUIS KISER PA-C Mar 09, 2017 20:09
== END 2017-03-09 20:09 | disposition home or self-care (01) ==
LOC: FTE 18:23
DX: J06.9 Acute upper respiratory infection, unspecified (principal); I10 Essential (primary) hypertension; E66.9 Obesity, unspecified; Z79.82 Long term (current) use of aspirin
CPT/HCPCS: 71020; Z7502